=== PATIENT | male | born 1960 | race Caucasian/White ===

== ENCOUNTER 2018-12-08 21:49 | Observation (INO) | payer BC ==
[2018-12-08] MEDS ORDERED: SODIUM CHLORIDE 0.9% 1,000 ML IV STA (22:05)
[2018-12-08] MEDS ORDERED: IPRATROPIUM-ALBUTEROL 3 ML NEB INHALATION STA (22:05)
[2018-12-08] MEDS ORDERED: AZITHROMYCIN 500 MG in SODIUM CHLORIDE 0.9% 250 ML IVPB ONE (22:05)
--- NOTE | 2018-12-08 22:08 | ED ---
Chest Pain HPI - General Chief Complaint: Chest Pain Stated Complaint: chest pain Time Seen by Provider: 12/08/18 22:01 Source: patient, RN notes reviewed, old records reviewed Mode of arrival: ambulatory Limitations: no limitations - History of Present Illness Initial Comments: This is a 58-year-old male the ER for evaluation presents today for evaluation of chest pain cough congestion shortness of breath feels like he may have a fever. MD Complaint: chest pain -: hour(s) Onset: during rest Pain Location: left chest Pain Radiation: LUE Severity: mild Severity scale (1-10): 3 Quality: aching Consistency: constant Improves With: nothing Worsens With: nothing Other Symptoms: cough, fever Treatments Prior to Arrival: none - Related Data Home Medications Medication Instructions Recorded Confirmed Losartan [Cozaar] 50 mg PO DAILY 09/30/15 12/08/18 Albuterol Inhaler [Ventolin Hfa 1 - 2 puff INHALATION RT-Q6H PRN 12/08/18 12/08/18 Inhaler] Losartan [Cozaar] 25 mg PO HS 12/08/18 12/08/18 Allergies Allergy/AdvReac Type Severity Reaction Status Date / Time No Known Allergies Allergy Verified 12/08/18 22:21 Review of Systems ROS Statement: Those systems with pertinent positive or pertinent negative responses have been documented in the HPI. ROS Other: All systems not noted in ROS Statement are negative. EKG Findings - EKG Comments: EKG Findings:: EKG shows sinus rhythm rate of 91, CA 150, QRS 100, QTC 442 Past Medical History Past Medical History: Hypertension History of Any Multi-Drug Resistant Organisms: None Reported Additional Past Surgical History / Comment(s): cataract Past Psychological History: No Psychological Hx Reported Smoking Status: Current every day smoker Past Alcohol Use History: Daily Past Drug Use History: None Reported General Exam Limitations: no limitations General appearance: alert, in no apparent distress Head exam: Present: atraumatic, normocephalic, normal inspection Eye exam: Present: normal appearance, PERRL, EOMI. Absent: scleral icterus, conjunctival injection, periorbital swelling ENT exam: Present: normal exam, mucous membranes moist Neck exam: Present: normal inspection. Absent: tenderness, meningismus, lymphadenopathy Respiratory exam: Present: normal lung sounds bilaterally. Absent: respiratory distress, wheezes, rales, rhonchi, stridor Cardiovascular Exam: Present: regular rate, normal rhythm, normal heart sounds. Absent: systolic murmur, diastolic murmur, rubs, gallop, clicks GI/Abdominal exam: Present: soft, normal bowel sounds. Absent: distended, tenderness, guarding, rebound, rigid Extremities exam: Present: normal inspection, full ROM, normal capillary refill. Absent: tenderness, pedal edema, joint swelling, calf tenderness Back exam: Present: normal inspection Neurological exam: Present: alert, oriented X3, CN II-XII intact Psychiatric exam: Present: normal affect, normal mood Skin exam: Present: warm, dry, intact, normal color. Absent: rash Course Vital Signs 12/08/18 12/08/18 12/08/18 21:52 22:37 23:06 Temperature 99.9 F H Pulse Rate 90 91 81 Respiratory 20 22 Rate Blood Pressure 116/74 O2 Sat by Pulse 94 L 97 Oximetry 12/08/18 23:17 Temperature Pulse Rate 81 Respiratory Rate Blood Pressure O2 Sat by Pulse Oximetry - Reevaluation(s) Reevaluation #1: 12/08/18 23:32 Medical record reviewed Reevaluation #2: 12/08/18 23:32 Patient improved Chest Pain MDM - MDM 58 male the ER for evasive chest pain found to underlying pneumonia. Patient be admitted for pneumonia evaluation and treatment, monitoring of chest pain Critical Care Time Critical Care Time: Yes Total Critical Care Time: 31 Disposition Clinical Impression: Chest pain, Community acquired pneumonia Disposition: ADMITTED IP TO THIS [facility] Condition: Undetermined Is patient prescribed a controlled substance at d/c from ED?: No Referrals: Paulo Cao DO [Primary Care Provider] - 1-2 days
[2018-12-08 22:47] LABS: Basophils # (A) 0.1 k/uL (0-0.2); Basophils % (A) 0 %; Eosinophils # (A) 0.3 k/uL (0-0.7); Eosinophils % (A) 2 %; HCT 42.2 % (39.0-53.0); HGB 14.3 gm/dL (13.0-17.5); Lymphocytes # (A) 1.8 k/uL (1.0-4.8); Lymphocytes % (A) 11 %; MCH 36.5 pg (25.0-35.0); MCHC 33.8 g/dL (31.0-37.0); MCV 107.9 fL (80.0-100.0); Macrocytosis Moderate; Mean Platelet Volume 6.4; Monocytes # (A) 1.1 k/uL (0-1.0); Monocytes % (A) 7 %; Neutrophils # (A) 12.8 k/uL (1.3-7.7); Neutrophils % (A) 78 %; Platelet Count 258 k/uL (150-450); RBC 3.91 m/uL (4.30-5.90); RDW 12.8 % (11.5-15.5); WBC 16.5 k/uL (3.8-10.6)
--- NOTE | 2018-12-08 22:54 | XR ---
EXAM: XR Chest, 2 Views CLINICAL HISTORY: ITS.REASON XR Reason: difficulty breathing TECHNIQUE: Frontal and lateral views of the chest. COMPARISON: Chest radiograph on 08/24/2015 FINDINGS: Hardware: None. Lungs/pleura: Patchy opacity in the lingula may represent pneumonia. No pleural effusion or pneumothorax. Heart/mediastinum: Normal. No cardiomegaly. Soft tissues: Unremarkable. Bones: No acute fracture. Degenerative changes of the spine. Upper abdomen: Normal. IMPRESSION: Patchy opacity in the lingula may represent pneumonia.
[2018-12-08 22:58] LABS: ALT 16 U/L (21-72); AST 23 U/L (17-59); African American GFR (CKD) >90 (>60 ml/min/1.73 sqM); Albumin 4.2 g/dL (3.5-5.0); Alkaline Phosphatase 46 U/L (38-126); Anion Gap 15 mmol/L; Blood Urea Nitrogen 14 mg/dL (9-20); Calcium 8.8 mg/dL (8.4-10.2); Carbon Dioxide 20 mmol/L (22-30); Chloride 102 mmol/L (98-107); Creatine Kinase 85 U/L (55-170); Glucose 98 mg/dL (74-99); INR 0.9 (<1.2); Magnesium 1.9 mg/dL (1.6-2.3); Partial Thromboplastin Time 27.7 sec (22.0-30.0); Prothrombin Time 9.5 sec (9.0-12.0); Sodium 137 mmol/L (137-145); Total Bilirubin 0.7 mg/dL (0.2-1.3); Total Protein 7.4 g/dL (6.3-8.2)
[2018-12-08] MEDS ORDERED: PNEUMONIA PROTOCOL UTILIZED 1 EACH MISC PO PRN (23:29)
[2018-12-08] MEDS ORDERED: SODIUM CHLORIDE 0.9% 1,000 ML IV SCH (23:30)
[2018-12-08] MEDS ORDERED: NITROGLYCERIN SL TABS 0.4 MG TAB SUBLINGUAL PRN (23:50)
[2018-12-09 02:28] VITALS: RESP 18
[2018-12-09 04:50] LABS: Cholesterol 101 mg/dL (<200); HDL Cholesterol 50 mg/dL (40-60); LDL Cholesterol,Calculated 41 mg/dL (0-99); Triglycerides 49 mg/dL (<150)
[2018-12-09] MEDS: IPRATROPIUM-ALBUTEROL 3 ML NEB INHALATION SCH ×2 (07:12→13:32)
--- NOTE | 2018-12-09 08:57 | P.CRDCN ---
History of Present Illness Consult date: 12/09/18 History of present illness: This is a 58-year-old gentleman with history of smoking and hypertension who has been having some chest discomfort on the left side and left shoulder area. He has been having congestion and cough and some fever. The pains radiated to the middle of the chest and he was concerned that he may be having heart attack. Patient came to the emergency room. His EKG did not reveal any acute changes. Cardiac enzymes are negative. He is found to have a pneumonia and is being treated with antibiotics. The pain increases on deep breathing and coughing. No history of previous ischemic or disease, myocardial infarctions. At this point is pains appear to be typical and probably related to his pneumonia. I'll continue his current medical therapy. I'll get an echocardiogram to make sure patient doesn't have any segmental wall motion defects. His echocardiogram is normal, patient will be discharged home. Patient will follow in the office in the outpatient setting and further cardiac evaluation will be done. Patient is advised to quit smoking Review of Systems As per the chart Past Medical History Past Medical History: Hypertension Additional Past Medical History / Comment(s): smoker, ETOH 10-12 beers per day stated by patient. History of Any Multi-Drug Resistant Organisms: None Reported Additional Past Surgical History / Comment(s): cataract, hernia repair Past Anesthesia/Blood Transfusion Reactions: No Reported Reaction Past Psychological History: No Psychological Hx Reported Smoking Status: Current every day smoker Past Alcohol Use History: Daily, Heavy Past Drug Use History: None Reported - Past Family History Mother Family Medical History: Cancer Additional Family Medical History / Comment(s): mother of pneumonia Father Family Medical History: Hypertension Additional Family Medical History / Comment(s): father still living. Medications and Allergies Home Medications Medication Instructions Recorded Confirmed Type Losartan [Cozaar] 50 mg PO DAILY 09/30/15 12/08/18 History Albuterol Inhaler [Ventolin Hfa 1 - 2 puff INHALATION RT-Q6H PRN 12/08/18 0 12/08/18 History Inhaler] Losartan [Cozaar] 25 mg PO HS 12/08/18 12/08/18 History Allergies Allergy/AdvReac Type Severity Reaction Status Date / Time No Known Allergies Allergy Verified 12/08/18 22:21 Physical Exam Vitals: Vital Signs Temp Pulse Pulse Resp BP BP Pulse Ox 12/09/18 07:22 84 12/09/18 07:20 98.8 F 89 18 152/87 94 L 12/09/18 07:12 88 12/09/18 02:27 99.2 F 88 18 131/74 94 L 12/08/18 23:30 100.0 F H 92 20 118/69 96 12/08/18 23:29 22 12/08/18 23:17 81 12/08/18 23:06 81 12/08/18 22:37 91 22 97 12/08/18 21:52 99.9 F H 90 20 116/74 94 L Intake and Output 12/08/18 12/09/18 12/09/18 22:59 06:59 14:59 Intake Total 600 Balance 600 Intake: Intake, IV Titration 600 Amount Sodium Chloride 0.9% 1, 600 000 ml @ 100 mls/hr IV . Q10H [facility] Rx#:[id number] Other: Weight 72.575 kg GENERAL EXAM: Patient is alert and oriented and doesn't appear to be in any acute distress HEENT: Normocephalic. Normal reaction of pupils, equal size, normal range of extraocular motion. No erythema or exudates in the throat. NECK: No masses, no nuchal rigidity. CHEST: No chest wall deformity. LUNGS: Diminished air exchange HEART: S1 and S2 normal with no audible mumurs or gallops. Regular rhythm, femorals equal on both sides.. ABDOMEN: No hepatosplenomegaly, normal bowel sounds, no guarding or rigidity. SKIN: No rashes CENTRAL NERVOUS SYSTEM: No focal deficits. EXTREMITIES: No cyanosis, clubbing or edema. Results 12/08/18 22:25 12/08/18 22:25 Cardiac Enzymes 12/08/18 12/08/18 12/09/18 Range/Units 22:25 22:25 04:06 AST 23 (17-59) U/L Troponin I <0.012 <0.012 (0.000-0.034) ng/mL Coagulation 12/08/18 Range/Units 22:25 PT 9.5 (9.0-12.0) sec APTT 27.7 (22.0-30.0) sec Lipids 12/09/18 Range/Units 04:06 Triglycerides 49 (<150) mg/dL Cholesterol 101 (<200) mg/dL HDL Cholesterol 50 (40-60) mg/dL CBC 12/08/18 Range/Units 22:25 WBC 16.5 H (3.8-10.6) k/uL RBC 3.91 L (4.30-5.90) m/uL Hgb 14.3 (13.0-17.5) gm/dL Hct 42.2 (39.0-53.0) % Plt Count 258 (150-450) k/uL Comprehensive Metabolic Panel 12/08/18 Range/Units 22:25 Sodium 137 (137-145) mmol/L Potassium 4.0 (3.5-5.1) mmol/L Chloride 102 (98-107) mmol/L Carbon Dioxide 20 L (22-30) mmol/L BUN 14 (9-20) mg/dL Creatinine 0.61 L (0.66-1.25) mg/dL Glucose 98 (74-99) mg/dL Calcium 8.8 (8.4-10.2) mg/dL AST 23 (17-59) U/L ALT 16 L (21-72) U/L Alkaline Phosphatase 46 (38-126) U/L Total Protein 7.4 (6.3-8.2) g/dL Albumin 4.2 (3.5-5.0) g/dL Current Medications Generic Name Dose Route Start Last Admin Trade Name Freq PRN Reason Stop Dose Admin Albuterol/Ipratropium 3 ml 12/09/18 08:00 12/09/18 07:12 Duoneb 0.5 Mg-3 Mg/3 Ml Soln INHALATION 3 ml RT-QID KOLE Administration Aspirin 325 mg 12/09/18 09:00 Aspirin PO DAILY [facility] Azithromycin 500 mg 12/09/18 23:30 Zithromax PO DAILY KOLE Enoxaparin Sodium 40 mg 12/09/18 09:00 Lovenox SQ DAILY KOLE Ceftriaxone Sodium 1 gm/ 50 mls @ 100 mls/hr 12/09/18 22:00 Sodium Chloride IVPB Q24H KOLE Sodium Chloride 1,000 mls @ 100 mls/hr 12/08/18 23:30 12/09/18 01:18 Saline 0.9% IV 100 mls/hr .Q10H KOLE Administration Losartan Potassium 25 mg 12/09/18 21:00 Cozaar PO HS KOLE Losartan Potassium 50 mg 12/09/18 09:00 Cozaar PO DAILY KOLE Miscellaneous Information 1 each 12/08/18 23:29 Pneumonia Protocol Utilized PO ONCE PRN Per Protocol Nitroglycerin 0.4 mg 12/08/18 23:50 Nitrostat SUBLINGUAL Q5M PRN Chest Pain Intake and Output 12/08/18 12/09/18 12/09/18 22:59 06:59 14:59 Intake Total 600 Balance 600 Intake: Intake, IV Titration 600 Amount Sodium Chloride 0.9% 1, 600 000 ml @ 100 mls/hr IV . Q10H [facility] Rx#:[id number] Other: Weight 72.575 kg 12/08/18 22:25 12/08/18 22:25 EKG Interpretations (text) Sinus rhythm Assessment and Plan (1) Essential hypertension Current Visit: Yes Status: Acute Code(s): I10 - ESSENTIAL (PRIMARY) HYPERTENSION SNOMED Code(s): 55447565 (2) Chest pain Current Visit: Yes Status: Acute Code(s): R07.9 - CHEST PAIN, UNSPECIFIED SNOMED Code(s): 08455561 (3) Community acquired pneumonia Current Visit: Yes Status: Acute Code(s): J18.9 - PNEUMONIA, UNSPECIFIED ORGANISM SNOMED Code(s): 319652067 (4) Smoking Current Visit: Yes Status: Acute Code(s): F17.200 - NICOTINE DEPENDENCE, UNSPECIFIED, UNCOMPLICATED SNOMED Code(s): 42402026 Plan: Continue with current medical therapy with antibiotics. Echocardiogram will be done. If the echo is normal, patient could be discharged after completion of treatment for pneumonia. Follow-up as an outpatient.
[2018-12-09] MEDS ORDERED: ASPIRIN 325 MG TAB PO SCH (09:00)
[2018-12-09] MEDS ORDERED: LOSARTAN 50 MG TAB PO SCH (09:00)
[2018-12-09] MEDS ORDERED: ENOXAPARIN 40 MG/0.4 ML SYRINGE SQ SCH (09:00)
--- NOTE | 2018-12-09 10:55 | XR ---
EXAMINATION TYPE: XR chest 2V DATE OF EXAM: 12/09/2018 COMPARISON: 08/24/2015 HISTORY: Pneumonia. Follow-up exam. TECHNIQUE: Frontal and lateral views of the chest are obtained. FINDINGS: There is redemonstration of lingular pneumonia. Remainder the lungs are well aerated. Pulm onary hyperinflation represents underlying COPD. Scarring at the left costophrenic angle is seen. No sizable pleural effusion or pneumothorax. The cardiac silhouette size is within normal limits. The osseous structures are intact. IMPRESSION: Redemonstration of lingular pneumonia. Follow-up to resolution. Underlying COPD.
[2018-12-09 11:41] VITALS: BP 125/78; PULSE 79; TEMP 98.9
--- NOTE | 2018-12-09 12:12 | ECHOF ---
Referral Reason:Chest pain and cardiomyopathy MEASUREMENTS -------- HEIGHT: 180.3 cm WEIGHT: 72.6 kg BP: RVIDd: 2.5 cm (< 3.3) IVSd: 0.6 cm (0.6 - 1.1) LVIDd: 4.8 cm (3.9 - 5.3) LVPWd: 0.7 cm (0.6 - 1.1) IVSs: 1.5 cm LVIDs: 2.8 cm LVPWs: 1.5 cm Ao Diam: 3.6 cm (2.0 - 3.7) AV Cusp: 2.0 cm (1.5 - 2.6) LA Diam: 2.7 cm (2.7 - 3.8) MV EXCURSION: 14.967 mm (> 18.000) MV EF SLOPE: 68 mm/s (70 - 150) EPSS: 0.5 cm MV E Reyes: 0.73 m/s MV DecT: 156 ms MV A Reyes: 0.69 m/s MV E/A Ratio: 1.06 RAP: 5.00 mmHg RVSP: 15.03 mmHg FINDINGS -------- Resting tachycardia (HR>100bpm). This was a technically good study. The left ventricular size is normal. Left ventricular wall thickness is normal. Overall left vent ricular systolic function is normal with, an EF between 55 - 60 %. The diastolic filling pattern is normal for the age of the patient 8.39. The right ventricle is normal in size. The left atrial size is normal. The right atrial size is normal. Interatrial and interventricular septum intact. The aortic valve is trileaflet and appears structurally normal. The mitral valve is normal. There is trace mitral regurgitation. The tricuspid valve appears structurally normal. Trace tricuspid regurgitation present. Right patsy tricular systolic pressure is normal at < 35 mmHg. There is no pulmonic regurgitation present. The aortic root size is normal. Normal inferior vena cava with normal inspiratory collapse consistent with estimated right atrial pre ssure of 5 mmHg. The flow patterns, measured by Doppler, appear normal. There is no pericardial effusion. CONCLUSIONS -------- 1. Resting tachycardia (HR>100bpm). 2. This was a technically good study. 3. The left ventricular size is normal. 4. Left ventricular wall thickness is normal. 5. Overall left ventricular systolic function is normal with, an EF between 55 - 60 %. 6. The diastolic filling pattern is normal for the age of the patient 8.39 7. The right ventricle is normal in size. 8. The left atrial size is normal. 9. The right atrial size is normal. 10. Interatrial and interventricular septum intact. 11. The aortic valve is trileaflet and appears structurally normal. 12. The mitral valve is normal. 13. There is trace mitral regurgitation. 14. The tricuspid valve appears structurally normal. 15. Trace tricuspid regurgitation present. 16. Right ventricular systolic pressure is normal at < 35 mmHg. 17. There is no pulmonic regurgitation present. 18. The aortic root size is normal. 19. Normal inferior vena cava with normal inspiratory collapse consistent with estimated right atrial pressure of 5 mmHg. 20. The flow patterns, measured by Doppler, appear normal. 21. There is no pericardial effusion. [employer] DIRECTOR: Brynn Jimenez RDCS
[2018-12-09] MEDS ORDERED: methylPREDNISolone SOD SUCCI 125 MG/2 ML VIAL IV STA (13:05)
[2018-12-09] MEDS ORDERED: LOSARTAN 25 MG TAB PO SCH (21:00)
[2018-12-09] MEDS ORDERED: AZITHROMYCIN 500 MG TAB PO SCH (23:30)
--- NOTE | 2018-12-10 08:46 | P.HPIM ---
History of Present Illness H&P Date: 12/09/18 Chief Complaint: Shoulder pain, chest pain, cough HISTORY AND PHYSICAL AND DISCHARGE SUMMARY: This is a 58-year-old male patient of Dr. Cao with past medical history of COPD, hypertension, tobacco use and dependence, alcohol abuse. Patient states that he developed shoulder and chest pain as well as has a cough with phlegm production for a couple weeks. Phlegm is white in color. He complains of pain with deep breathing. He denies any radiation of pain to his jaw. He denies any numbness or tingling, no lower extremity edema. He denies any shortness of breath with ambulation. He does have some pressure sensation with palpation. He denies any recent falls. He denies O2 dependence. The patient came into [facility] emergency center for evaluation. Troponins have been negative on 3 draws. Chest x-ray shows patchy opacities in the lingula may represent pneumonia. Echocardiogram revealed EF 55-60%, trace mitral regurgitation, trace tricuspid regurgitation, no pulmonary regurgitation. Estimated right atrial pressure 5 mmHg. Temperature max 100.0. White count 16.5, MCV of 107.9, MCH 36.5. CO2 20, liver function tests normal, creatinine 0.61. Triglycerides 49, cholesterol 101, LDL 41, HDL 50. Patient has been evaluated by cardiology and cleared for discharge home. Patient can follow-up in the office for further evaluation. Patient has been started on antibiotics and will be transitioned to oral and discharged home today in stable condition. Smoking cessation has been discussed as well as alcohol cessation. Review of Systems Constitutional: Reports fatigue, Reports malaise, Denies fever Ears, nose, mouth and throat: Denies dysphagia, Denies nasal congestion, Denies nasal discharge, Denies sore throat, Denies vertigo Cardiovascular: Reports chest pain, Denies decreased exercise tolerance, Denies dyspnea on exertion, Denies edema, Denies leg edema, Denies lightheadedness, Denies orthopnea, Denies palpitations, Denies syncope Respiratory: Reports cough, Reports cough with sputum, Reports respiratory infections, Denies dyspnea, Denies excessive sputum, Denies hemoptysis, Denies home oxygen Gastrointestinal: Denies abdominal pain, Denies diarrhea, Denies nausea, Denies vomiting Genitourinary: Denies dysuria, Denies urinary frequency, Denies urinary retention Musculoskeletal: Denies gait dysfunction, Denies muscle weakness, Denies myalgias Integumentary: Denies pruritus, Denies rash, Denies wounds Neurological: Denies aphasia, Denies change in mentation, Denies change in speech Psychiatric: Denies anxiety, Denies depression Endocrine: Denies fatigue, Denies weight change Past Medical History Past Medical History: Hypertension Additional Past Medical History / Comment(s): smoker, ETOH 10-12 beers per day stated by patient. History of Any Multi-Drug Resistant Organisms: None Reported Additional Past Surgical History / Comment(s): cataract, hernia repair Past Anesthesia/Blood Transfusion Reactions: No Reported Reaction Past Psychological History: No Psychological Hx Reported Smoking Status: Current every day smoker Past Alcohol Use History: Daily, Heavy Additional Past Alcohol Use History / Comment(s): Patient is a smoker one pack per day for proximal September 40 years or more. Patient drinks beer up to 7-10 per day or more for many years. Patient lives at home with his . He does not have oxygen. He does not require cane or walker at home. Past Drug Use History: None Reported - Past Family History Mother Family Medical History: Cancer Additional Family Medical History / Comment(s): mother of pneumonia with history of breast cancer. Father Family Medical History: Hypertension Additional Family Medical History / Comment(s): father still living. Brother(s) Additional Family Medical History / Comment(s): Siblings have no major medical problems. Medications and Allergies Home Medications Medication Instructions Recorded Confirmed Type Losartan [Cozaar] 50 mg PO DAILY 09/30/15 12/08/18 History Albuterol Inhaler [Ventolin Hfa 1 - 2 puff INHALATION RT-Q6H PRN 12/08/18 12/08/18 History Inhaler] Losartan [Cozaar] 25 mg PO HS 12/08/18 12/08/18 History Levofloxacin [Levaquin] 500 mg PO DAILY #7 tab 12/09/18 Rx predniSONE 40 mg PO DAILY #14 tab 12/09/18 Rx Allergies Allergy/AdvReac Type Severity Reaction Status Date / Time No Known Allergies Allergy Verified 12/08/18 22:21 Physical Exam Vitals: Vital Signs Temp Pulse Pulse Resp BP BP Pulse Ox 12/09/18 11:40 98.9 F 79 18 125/78 95 12/09/18 07:22 84 07/11/19 07:20 98.8 F 89 18 152/87 94 L 12/09/18 07:12 88 12/09/18 02:27 99.2 F 88 18 131/74 94 L 12/08/18 23:30 100.0 F H 92 20 118/69 96 12/08/18 23:29 22 12/08/18 23:17 81 12/08/18 23:06 81 12/08/18 22:37 91 22 97 12/08/18 21:52 99.9 F H 90 20 116/74 94 L Intake and Output 12/09/18 12/09/18 12/09/18 06:59 14:59 22:59 Intake Total 600 118 Balance 600 118 Intake: Intake, IV Titration 600 Amount Sodium Chloride 0.9% 1, 600 000 ml @ 100 mls/hr IV . Q10H [facility] Rx#:[id number] Oral 118 Other: Voiding Method Toilet Gen: This is a 58-year-old male. He is resting in bed and appears to be comfortable and in no acute distress. HEENT: Head is atraumatic, normocephalic. Pupils equal, round. Sclerae is anicteric. NECK: Supple. No JVD. No lymphadenopathy. No thyromegaly. LUNGS: Diminished. No intercostal retractions. HEART: Regular rate and rhythm. No murmur. ABDOMEN: Soft. Bowel sounds are present. No masses. No tenderness. EXTREMITIES: No pedal edema. No calf tenderness. NEUROLOGICAL: Patient is awake, alert and oriented x3. Cranial nerves 2 through 12 are grossly intact. Results CBC & Chem 7: 12/08/18 22:25 12/08/18 22:25 Labs: Abnormal Lab Results - Last 24 Hours (Table) 12/08/18 12/08/18 Range/Units 22:25 22:25 WBC 16.5 H (3.8-10.6) k/uL RBC 3.91 L (4.30-5.90) m/uL MCV 107.9 H (80.0-100.0) fL MCH 36.5 H (25.0-35.0) pg Neutrophils # 12.8 H (1.3-7.7) k/uL Monocytes # 1.1 H (0-1.0) k/uL Carbon Dioxide 20 L (22-30) mmol/L Creatinine 0.61 L (0.66-1.25) mg/dL ALT 16 L (21-72) U/L Thrombosis Risk Factor Assmnt - Choose All That Apply Any of the Below Risk Factors Present?: Yes Each Factor Represents 1 point: Age 41-60 years Other Risk Factors: No Thrombosis Risk Factor Assessment Total Risk Factor Score: 1 Thrombosis Risk Factor Assessment Level: Low Risk Assessment and Plan Plan: 1. Chest pain. Acute coronary syndrome ruled out. Patient follow-up with cardiology as an outpatient. 2. Pneumonia. Patient will be discharged on Levaquin and prednisone. 3. Hypertension. 4. COPD. 5. Tobacco use and dependence. Smoking cessation. 6. Alcohol abuse. Cessation. Patient placed on the observation unit. Discharge plan: Return home Discharge Medication List Losartan [Cozaar] 50 mg PO DAILY 09/30/15 [History] Albuterol Inhaler [Ventolin Hfa Inhaler] 1 - 2 puff INHALATION RT-Q6H PRN 12/08/18 [History] Losartan [Cozaar] 25 mg PO HS 12/08/18 [History] Levofloxacin [Levaquin] 500 mg PO DAILY #7 tab 12/09/18 [Rx] predniSONE 40 mg PO DAILY #14 tab 12/09/18 [Rx] Impression and plan of care have been directed as dictated by the signing physician. Marta Way nurse practitioner acting as scribe for signing physician.
== END 2018-12-09 14:15 | disposition home or self-care (01) ==
LOC: EC 21:49 → 1SOBS 23:29
PROVIDERS: ADMIT Internal Medicine; ATTEND Internal Medicine
DX: R07.89 Other chest pain (principal); J44.0 Chronic obstructive pulmonary disease with (acute) lower respiratory infection; J18.9 Pneumonia, unspecified organism; I10 Essential (primary) hypertension; F17.210 Nicotine dependence, cigarettes, uncomplicated; F10.10 Alcohol abuse, uncomplicated; Z79.899 Other long term (current) drug therapy; Z82.49 Family history of ischemic heart disease and other diseases of the circulatory system; Z80.3 Family history of malignant neoplasm of breast; Z83.6 Family history of other diseases of the respiratory system
CPT/HCPCS: 96365; 96366; 96367; 99291; 36415; 94640 ×2; 93005; 93306; 83880; 80061; 80053; 82550; 83735; 84484 ×2; 85025; 85610; 85730; 87040; 71046 ×2; G0378 ×2; J0456; J0696

== ENCOUNTER → 2022-08-21 | Outpatient (CLI) | payer BC ==
--- NOTE | 2022-08-21 13:39 | CT ---
"INDICATION: Patient age:Male; 62 years old; Reason for study: J38.01 vocal cord paralysis; PHH. COMPARISON: None. TECHNIQUE: Standard enhanced CT of the neck and chest following intravenous administration of 100 cc of Isovue 300. Axial sections with coronal and sagittal reformats were obtained. One or more CT dose reduction strategies were utilized during this examination. Total DLP administered was 766 mGycm. FINDINGS: Head: The visualized portions of brain are unremarkable. Bilateral aphakia. Mucous retention cyst wit hin the left maxillary sinus measuring up to 1.6 cm. Mild mucosal thickening of the left posterior et hmoid sinus. The mastoid air cells are clear. Suprahyoid Neck: The oropharynx, oral cavity, parapharyngeal and retropharyngeal spaces are clear and symmetric. The nasopharynx is unremarkable. Infrahyoid Neck: The hypopharynx is clear and symmetric. Mild asymmetrical thickening of the right vo joellen cord compared to the left. Parotid Glands: Unremarkable. Submandibular Glands: Unremarkable. Lymph Nodes: Enlarged AP window lymph node measuring 1.6 cm short axis, likely metastasis. Vascular Structures: Ascending thoracic aortic aneurysm measuring up to 4.1 cm. Mild atherosclerotic calcification of the aorta and its branches. Thyroid: Unremarkable LUNGS/ PLEURA: No pleural effusion or pneumothorax. Spiculated left upper lobe superior perihilar mas s with extension into the mediastinum identified. This measures 5.0 x 3.6 x 5.4 cm in AP by TV by CC dimensions. There is less than 180 degree of involvement of the proximal left common carotid artery w ith greater than 180 degree encasement of the proximal left subclavian artery. Mild bilateral apical paraseptal emphysematous changes. No suspicious pulmonary nodules. AIRWAY: Patent and unremarkable.. HEART: Size within normal limits. No pericardial effusion. Mild coronary arterial calcifications. MEDIASTINUM: No gross evidence of adenopathy. MUSCULOSKELETAL: No acute osseous abnormalities. No aggressive osseous lesion. Mild degenerative disc disease of the cervical spine. SOFT TISSUES: Unremarkable. UPPER ABDOMEN: No significant findings. IMPRESSION: 1. Left upper lobe superior perihilar spiculated 5.4 cm mass. This is considered malignancy until pr oven otherwise. There is invasion into the mediastinum with abutment of the proximal left common edwards tid and left subclavian arteries. 2. Enlarged AP window lymph node which likely represent metastasis. 3. Mild asymmetric thickening of the right vocal cord compared to the left. Direct visualization is recommended. 4. Ascending thoracic aortic aneurysm measuring up to 4.1 cm. A Yellow level critical message alert has been initiated for Harry Garcia MD via the [employer] 36 0 | Critical Results System on 08/21/2022 1:37 PM. This message alert has been sent to Harry Garcia MD via the preferences provided by the clinician for the receipt of Radiology Critical Findings. [facility] ID [id number]."
== END | disposition home or self-care (01) ==
LOC: RADCTMAIN 12:36
PROVIDERS: ATTEND Otolaryngology
DX: I71.21 Aneurysm of the ascending aorta, without rupture (principal); J38.01 Paralysis of vocal cords and larynx, unilateral; R59.0 Localized enlarged lymph nodes; R91.8 Other nonspecific abnormal finding of lung field
CPT/HCPCS: 70491; 71260; Q9967

== ENCOUNTER → 2022-09-04 | Day surgery (SDC) | payer BC ==
[2022-09-01 13:35] VITALS: BMI 25.4
[~2022-09-04] MED LIST: LACTATED RINGERS 1,000 ML IV SCH; LIDOCAINE 2% INJ 20 MG/ML (2 ML VIAL) ONE; MIDAZOLAM 2 MG/2 ML VIAL ONE; PHENYLEPHRINE-0.9% NACL SYG 1,000 MCG/10 ML SYRINGE ONE; PROPOFOL 10 MG/ML 20 ML VIAL IV ONE; SODIUM CHLORIDE 0.9% 500 ML 500 ML IV ONE; fentaNYL (PF) 50 MCG/ML 2 ML AMP ONE
[2022-09-04 12:50] LABS: Glucose,Whole Blood 89 mg/dL (70-110)
[2022-09-04 16:24] VITALS: TEMP 97.2
--- NOTE | 2022-09-04 16:26 | P.PCN ---
Date of Procedure: 09/04/22 Preoperative Diagnosis: Left upper lobe suprahilar mass Postoperative Diagnosis: Left upper lobe suprahilar mass Procedure(s) Performed: Endobronchial ultrasound and transbronchial needle aspirate of the left upper lobe suprahilar mass Anesthesia: ROBER Surgeon: Goran Lloyd Estimated Blood Loss (ml): 0 Pathology: other Condition: stable Disposition: same day Operative Findings: After obtaining the consent the patient was taken to the OR suite , a LMA was inserted by the anesthesia team and the patient was put on MV by anesthesia. Following that the flexible bronchoscope was advanced to the LMA tube until the upper airway structures were visualized. The left vocal cord was midline and probably paralyzed. Vocal cord function and mobility could not be assessed that the patient was quite sedated. I did not suspect however that the left vocal cords was paralyzed. No lesions or nodules identified. Following that, the bronchoscope was passed to the vocal cords into the upper trachea and airway inspection was done. The trachea was seen and it was normal and then the davis appears normal then the scope advanced to the left main and ARMEN LB1-LB3 were seen and no endobronchial lesions were seen then the scope advanced to the lingula and the LB4 and LB5 were seen and no endobronchial lesions were seen the scope retracted and advanced to the left lower lobes LB6 to LB12 were seen one by one and no endobronchial lesions, then the scope was retracted back to the davis and advanced to the Right main and RUL RB1 and RB2 and RB3 were seen one by one and no endobronchial lesions were seen the scope then retracted and advanced to the BI and RML RB4 and RB5 were seen and no endobronchial lesions were seen then it was retracted and advanced to the RLL RB6 to RB12 were seen one by one and no endobronchial lesions. The flexible bronchoscope was removed. Endobronchial ultrasound was introduced through the LMA tube/mass and it was advanced into the trachea. Mediastinal lymph node evaluation was done and there was no sizable mediastinal lymph nodes identified. Following that, the endobronchial ultrasound was normal to the lateral wall of the trachea and the left upper lobe hilar mass was identified. Under direct visualization, a 22-gauge was used and multiple transbronchial needle aspirate of the mass was done. No bleeding was encountered and the patient tolerated the procedure well. Regular bronchoscope was used to do a therapeutic airway suctioning and following that the bronchoscope was removed. At the patient aroused, there LMA was removed and the patient was transferred to recovery in stable condition. We will be awaiting final pathology results. We'll continue to follow.
[2022-09-04 16:49] VITALS: RESP 16
[2022-09-04 17:22] VITALS: BP 173/94; PULSE 59
== END ==
LOC: ORWHC2ENDO 11:58
PROVIDERS: ATTEND Internal Medicine Critical Care Medicine
DX: R91.8 Other nonspecific abnormal finding of lung field (principal); I10 Essential (primary) hypertension; J44.9 Chronic obstructive pulmonary disease, unspecified; H40.9 Unspecified glaucoma; Z79.899 Other long term (current) drug therapy; Z79.51 Long term (current) use of inhaled steroids; J38.00 Paralysis of vocal cords and larynx, unspecified; I71.9 Aortic aneurysm of unspecified site, without rupture; Z87.891 Personal history of nicotine dependence
CPT/HCPCS: 88305; 88173; 31652; J2250; J3010; J2370; J2704; J2001

== ENCOUNTER → 2022-09-20 | Outpatient (CLI) | payer BC ==
--- NOTE | 2022-09-21 13:14 | PE ---
EXAMINATION TYPE: PET CT fusion skull to thigh DATE OF EXAM: 09/20/2022 CLINICAL INDICATION:Male, 62 years old with history of R91.1; TECHNIQUE: Following the intravenous administration of 13.6 mCi of F-18 FDG, whole body images are performed from the skull base to the midthigh. Images are reviewed on the computer in the coronal, a xial, and sagittal planes. Reconstructed rotating images are created on independent workstation and reviewed on the computer. A non-contrast CT is performed in conjunction with the PET scan. Glucose level 102 mg/dL COMPARISON: CT 08/21/2022, PET/CT None, FINDINGS: Mediastinal SUV mean is 1.7. Hepatic parenchyma SUV mean is 2.0. SKULL BASE AND NECK: No suspicious radiotracer activity. CHEST, MEDIASTINUM, AND HILAR REGION: Left upper lung mass which extends into the mediastinum max SUV 11.8 measuring at least 4.3 x 4.9 x 4.0 cm on PET imaging. * AP window lymph node medially in the pelvis with increased FDG activity max SUV 3.3. ABDOMEN AND PELVIS: No suspicious radiotracer activity. OSSEOUS STRUCTURES: No suspicious radiotracer activity. OTHER CT: Bilateral aphakia. Atherosclerosis at the carotid bifurcations. Atherosclerosis of the aguila rial vasculature including the coronary arteries. Bilateral mild gynecomastia changes. Scattered colo duran diverticula present. Fat-containing bilateral inguinal hernias. The prostate is enlarged measurin g up to 4.5 cm in transverse dimension. IMPRESSION: Right upper lung mass which extends into the mediastinal fat is compatible with primary malignancy. A P window lymph node likely representing local metastatic disease. No evidence for metastatic disease within the osseous structures or within the abdomen or pelvis or neck.
== END | disposition home or self-care (01) ==
LOC: RADPETMAIN 11:08
PROVIDERS: ATTEND Internal Medicine Critical Care Medicine
DX: R91.8 Other nonspecific abnormal finding of lung field (principal)
CPT/HCPCS: 78815; A9552

== ENCOUNTER → 2022-09-23 | Outpatient (CLI) | payer BC ==
[2022-09-23 09:17] LABS: Partial Thromboplastin Time 24.6 sec (22.0-30.0); Prothrombin Time 10.3 sec (9.0-12.0)
[2022-09-23 11:03] LABS: Basophils # (A) 0.07 X 10*3/uL (0.00-0.10); Basophils % (A) 0.8 %; Eosinophils # (A) 0.12 X 10*3/uL (0.04-0.35); Eosinophils % (A) 1.4 %; HCT 45.9 % (39.6-50.0); HGB 15.4 g/dL (13.0-17.0); Immature Grans, Automated 0.5 %; Lymphocytes # (A) 1.43 X 10*3/uL (0.90-5.00); Lymphocytes % (A) 16.3 %; MCH 36.4 pg (27.0-32.0); MCHC 33.6 g/dL (32.0-37.0); MCV 108.5 fL (80.0-97.0); Mean Platelet Volume 8.7 fL (9.5-12.2); Monocytes # (A) 0.96 X 10*3/uL (0.20-1.00); NRBC Per 100 WBC 0 /100 WBCS (0.0-0.0); Neutrophils # (A) 6.14 X 10*3/uL (1.80-7.70); Platelet Count 387 X 10*3/uL (140-440); RBC 4.23 X 10*6/uL (4.40-5.60); RDW 12.8 % (11.5-14.5); WBC 8.76 X 10*3/uL (4.50-10.00)
[2022-09-23 11:12] LABS: African American GFR (CKD) 123.1 (60.0-200.0); Anion Gap 8.7 mmol/L (10.00-18.00); Blood Urea Nitrogen 8.2 mg/dL (9.0-27.0); Carbon Dioxide 29.3 mmol/L (20.0-27.5); Non-African American GFR(CKD) 106.3 (60.0-200.0); Potassium 4.6 mmol/L (3.5-5.5)
[2022-09-23 15:38] LABS: Appearance,Urine Clear (Clear); Bilirubin,Urine Negative (Negative); Blood,Urine Negative (Negative); Color,Urine Yellow (Yellow); Ketones,Urine Negative (Negative); Nitrite,Urine Negative (Negative); PH, Urine 5.5 (5.0-8.0); Urobilinogen,Urine 0.2 (0.2,1.0)
== END | disposition home or self-care (01) ==
LOC: LABPAT 07:48
PROVIDERS: ATTEND Thoracic Surgery (Cardiothoracic Vascular Surgery)
DX: Z01.812 Encounter for preprocedural laboratory examination (principal); R59.0 Localized enlarged lymph nodes; E86.0 Dehydration; I51.0 Cardiac septal defect, acquired; E87.8 Other disorders of electrolyte and fluid balance, not elsewhere classified; R58 Hemorrhage, not elsewhere classified; R53.83 Other fatigue; R94.31 Abnormal electrocardiogram [ECG] [EKG]
CPT/HCPCS: 36415; 80051; 81003; 82565; 82947; 84520; 85025; 85610; 85730; 87086; 93005

== ENCOUNTER 2022-09-25 05:46 | Day surgery (SDC) | payer BC ==
[2022-09-22 12:27] VITALS: BMI 25.0
[~2022-09-25 05:46] MED LIST changes: -LIDOCAINE 2% INJ 20 MG/ML (2 ML VIAL) ONE; -MIDAZOLAM 2 MG/2 ML VIAL ONE; +ONDANSETRON 4 MG/2 ML VIAL IVP ONE; -PHENYLEPHRINE-0.9% NACL SYG 1,000 MCG/10 ML SYRINGE ONE; -PROPOFOL 10 MG/ML 20 ML VIAL IV ONE; -SODIUM CHLORIDE 0.9% 500 ML 500 ML IV ONE; -fentaNYL (PF) 50 MCG/ML 2 ML AMP ONE
[2022-09-25] MEDS ORDERED: fentaNYL (PF) 50 MCG/ML 2 ML AMP IV PRN (07:00)
[2022-09-25] MEDS ORDERED: HYDROmorphone 0.5 MG/0.5 ML SYRINGE IVP PRN (07:00)
[2022-09-25] MEDS ORDERED: GLYCOPYRROLATE 0.2 MG/ML 2 ML VIAL ONE (07:25)
[2022-09-25] MEDS ORDERED: SUCCINYLCHOLINE CHLORIDE 200 MG/10 ML VIAL IV ONE (07:25)
[2022-09-25] MEDS ORDERED: LIDOCAINE 2% INJ 20 MG/ML (2 ML VIAL) ONE (07:25)
[2022-09-25] MEDS ORDERED: PROPOFOL 10 MG/ML 20 ML VIAL IV ONE (07:25)
[2022-09-25] MEDS ORDERED: fentaNYL (PF) 50 MCG/ML 2 ML AMP ONE (07:25)
[2022-09-25] MEDS ORDERED: MIDAZOLAM 2 MG/2 ML VIAL ONE (07:25)
[2022-09-25] MEDS ORDERED: NEOSTIGMINE 1 MG/ML 10 ML VIAL ONE (07:25)
[2022-09-25] MEDS ORDERED: ROCURONIUM 10 MG/ML (5 ML VIAL) IV ONE (07:25)
[2022-09-25] MEDS ORDERED: LACTATED RINGERS 1,000 ML IV ONE (07:56)
[2022-09-25] MEDS ORDERED: BUPIVACAINE (PF) 0.25% 30 ML VIAL SQ ONE (08:36)
[2022-09-25 08:50] VITALS: TEMP 97
--- NOTE | 2022-09-25 09:10 | P.OP ---
Date of Procedure: 09/25/22 Preoperative Diagnosis: Stage III lung cancer Postoperative Diagnosis: Same Procedure(s) Performed: Left anterior mediastinotomy with mediastinal lymph node biopsy (Dafter procedure) Implants: None Anesthesia: GETA Surgeon: Chaim Robertson Estimated Blood Loss (ml): 25 IV fluids (ml): 1,400 Urine output (ml): 0 Pathology: other (Mediastinal mass for frozen section and permanent section.) Condition: stable Disposition: PACU Indications for Procedure: 62-year-old male presents with hoarseness and paralyzed left vocal cord. He was found to have a left suprahilar lung mass with mediastinal extension or contiguous mediastinal adenopathy by CT and PET. He also has AP window lymph nodes. Bronchoscopy and nevus was performed and malignant cells were obtained but they were unable to establish a definitive diagnosis. Surgical biopsy was requested. Operative Findings: Lung mass was separable from the mediastinum. Biopsies of the mediastinal mass were obtained. Frozen section revealed poorly differentiated non-small cell carcinoma. Description of Procedure: Patient was placed supine on the operating room table. Gen. anesthesia was remy kenny. Anterior chest and left lateral chest was sterilely prepped and draped. Incision was made over the fourth costal cartilage and carried down skin and subcutaneous tissue. The pectoralis muscle fibers were split and the fourth costal cartilage was identified. We incised the perichondrium and resected the cartilage. We then incised the posterior perichondrium and exposed the pleura. Internal mammary artery was ligated proximally and distally with 3-0 silk. Blunt dissection was carried into the mediastinum. The tumor could be palpated. We were able to fracture between the tumor and the mediastinal component of the mass suggesting that the mediastinal component of the mass was contiguous lymph nodes. Multiple biopsies were obtained using both direct vision and mediastinoscope. Frozen section of a portion demonstrated viable tissue. Bleeding was controlled with packing. The packing was removed and good hemostasis was noted. Perichondrium was tacked closed with 2-0 Vicryl f [id number] sutures. The muscle was closed with 2-0 Vicryl. Subcutaneous subcuticular layers were closed with 3-0 Vicryl. Skin glue and a dry sterile dressing were applied. Patient was extubated and transferred to recovery in stable condition.
[2022-09-25 09:19] VITALS: RESP 16
--- NOTE | 2022-09-25 09:20 | XR ---
EXAMINATION TYPE: XR chest 1V portable DATE OF EXAM: 09/25/2022 HISTORY: Shortness of breath. COMPARISON: 12/09/2018 TECHNIQUE: Single view of the chest is submitted. FINDINGS: Demonstrated are scattered senescent parenchymal change. There is no evidence for focal infiltrate. The heart is stable. Hilar and mediastinal structures are within normal limits. Degenerative changes are seen of the dorsal spine. IMPRESSION: 1. Chronic changes without evidence for acute pulmonary disease.
[2022-09-25 09:56] VITALS: PULSE 63
[2022-09-25] MEDS ORDERED: IBUPROFEN 600 MG TAB PO ONE (09:56)
[2022-09-25 10:18] VITALS: BP 155/89
--- NOTE | 2022-09-26 11:00 | P.ANPRN ---
Procedure Note - Anesthesia - Invasive Line Right Arterial Line Time Out Performed: Yes Date of Procedure: 09/25/22 Time of Procedure: 06:51 Location of Patient: PreOp Preparation: Sterile Prep Arterial Line Location: Radial Ultrasound Used: No Purpose - Visualization and Identification of Vasculature: No Image Stored and Saved: No Narrative: Central line placement per sterile protocol utilized.
== END 2022-09-25 10:33 | disposition home or self-care (01) ==
LOC: UNDOADMIN 05:46 → U 05:46 → 2ORMAIN 05:46 → EDSTATUS 07:30 → UNDODISIN 10:33 → U 10:33
PROVIDERS: ATTEND Thoracic Surgery (Cardiothoracic Vascular Surgery)
DX: C38.3 Malignant neoplasm of mediastinum, part unspecified (principal); J38.00 Paralysis of vocal cords and larynx, unspecified; Z79.51 Long term (current) use of inhaled steroids; Z87.891 Personal history of nicotine dependence
CPT/HCPCS: 86900; 86901; 88305; 86850; 88342; 88331; 88341; 71045; 39010; J2250; J0330; J2710; J0690; J2405; J3010; J2704; J2001

== ENCOUNTER → 2022-10-02 | Outpatient (CLI) | payer BC ==
--- NOTE | 2022-10-02 15:12 | XR ---
EXAMINATION TYPE: XR chest 2V DATE OF EXAM: 10/02/2022 COMPARISON: Chest x-ray September 25, 2022 and old studies. HISTORY: Shortness of breath, rule out pleural effusion. TECHNIQUE: Frontal and lateral views of the chest are obtained. FINDINGS: There is new small left pleural effusion. There is background mild chronic emphysematous c hange with left suprahilar mass or neoplasm adjacent to aortic knob redemonstrated. Right lung is cl ear. The cardiac silhouette size is stable and within normal limits. The osseous structures are int act. IMPRESSION: As above.
== END | disposition home or self-care (01) ==
LOC: RADXRMAIN 14:42
PROVIDERS: ATTEND Thoracic Surgery (Cardiothoracic Vascular Surgery)
DX: R06.02 Shortness of breath (principal)
CPT/HCPCS: 71046

== ENCOUNTER → 2023-01-07 | Outpatient (CLI) | payer BC ==
--- NOTE | 2023-01-07 07:47 | MR ---
EXAMINATION TYPE: MR brain wo/w con DATE OF EXAM: 01/07/2023 COMPARISON: 10/03/2022 HISTORY: Blurred vision, Lung ca CONTRAST: Performed utilizing 7 mL intravenous Gadavist gadolinium contrast. TECHNIQUE: Multiplanar, multiecho imaging on a 3.0 Roberta magnet is performed through the brain. Stud y is performed within 24 hours of arrival to the hospital. The craniovertebral junction is normal. The pituitary is normal. Diffusion-weighted imaging is performed. No abnormal hyperintensity is present to suggest an acute i ntracranial infarct or acute ischemic change. There are couple of small subcortical white matter changes including left frontal lobe measuring 0.4 cm left coats radiata measuring 0.3 cm, anterior left parietal lobe measuring 0.4 cm. These are nons pecific but could be related to microvascular ischemic change. No abnormal enhancement in these locat ions or elsewhere within the brain examination. Findings are nonspecific but could be related to micr ovascular ischemic change. Differential diagnosis could include migraine headaches vasculitis or Lyme disease sclerosis. Ventricles and sulci are appropriate for the patient age. IMPRESSIONS: 1. Few punctate hyperintensities on inversion recovery are nonspecific but likely related to microvas cular ischemic change. These are not out of proportion to the patient's age and appears stable from c omparison. 2. No suspicious changes to suggest metastatic disease.
== END | disposition home or self-care (01) ==
LOC: RADMRIMAIN 06:21
PROVIDERS: ATTEND Internal Medicine
DX: C34.12 Malignant neoplasm of upper lobe, left bronchus or lung (principal)
CPT/HCPCS: 70553; A9585

== ENCOUNTER → 2023-03-12 | Outpatient (CLI) | payer BC ==
[2023-03-12 15:38] LABS: African American GFR (CKD) >90 (>60 ml/min/1.73 sqM); Blood Urea Nitrogen 10 mg/dL (9-20); Non-African American GFR(CKD) >90 (>60 ml/min/1.73 sqM)
--- NOTE | 2023-03-13 09:04 | CT ---
EXAMINATION TYPE: CT chest abdomen w con CT DLP: 1133 mGycm, Automated exposure control for dose reduction was used. DATE OF EXAM: 03/12/2023 4:20 PM COMPARISON: 12/19/2022 CLINICAL INDICATION:Male, 62 years old with history of C34.12 MALIGNANT NEOPLASM OF UPPER LOBE, LEFT BRON; PHH, Lung cancer, malignant neoplasm Technique: Multiple axial images of the chest, abdomen were obtained. Two-dimensional coronal and sag ittal reconstructions were obtained. Contrast used:100 cc mL of Isovue 300 with IV Contrast, Oral contrast used: with Oral Contrast Findings: CHEST: LUNGS/ PLEURA: Masslike consolidation in the left upper lung appears slightly decreased in size measu ring 1.8 x 1.7 m, previously 2.4 x 2.1 cm. Ill-defined soft tissue extending into the mediastinum ser ies 3 image 24 is not significantly changed. AIRWAY: Patent and unremarkable. HEART: Heart is mildly enlarged for size with coronary artery calcifications. MEDIASTINUM: No gross evidence of adenopathy. Soft tissue consolidation extending from the mass in th e left upper lung into the mediastinum appears grossly similar to prior. No new or enlarging lymph no usrya within the mediastinum. VASCULATURE: Ascending thoracic aorta ectasia up to 4.1 cm. The origins of the aorta are patent. MUSCULOSKELETAL: No acute osseous abnormalities. SOFT TISSUES/LYMPH NODES: Unremarkable. LOWER NECK: No significant findings. ABDOMEN: ABDOMEN LIVER: Unremarkable GALLBLADDER AND BILE DUCTS: Unremarkable. PANCREAS: Unremarkable. SPLEEN: Unremarkable. ADRENAL GLANDS: Unremarkable. KIDNEYS AND URETERS: No evidence of hydronephrosis or renal calculus. The ureters are unremarkable. PELVIS BLADDER: Unremarkable REPRODUCTIVE: Unremarkable. ABDOMEN & PELVIS STOMACH AND BOWEL: No evidence of bowel obstruction. PERITONEUM: No evidence of pneumoperitoneum or free fluid. VASCULATURE: Mild atherosclerotic calcifications are present throughout the abdominal aorta and its b ranches. MUSCULOSKELETAL: No acute osseous abnormalities LYMPH NODES: No gross evidence for lymphadenopathy. SOFT TISSUE/ABDOMINAL WALL: Unremarkable IMPRESSION: Interval decrease in size in left upper lung consolidation. There is ill-defined soft tissue extendin g into the mediastinum which is not significantly changed. No evidence for new lymphadenopathy, new p ulmonary nodule or mass or evidence for metastatic disease to the abdomen.
== END | disposition home or self-care (01) ==
LOC: RADCTMAIN 14:51
PROVIDERS: ATTEND Internal Medicine
DX: C34.12 Malignant neoplasm of upper lobe, left bronchus or lung (principal); R91.8 Other nonspecific abnormal finding of lung field
CPT/HCPCS: 82565; 84520; 71260; 74160; 36415; Q9967

== ENCOUNTER → 2023-08-14 | Outpatient (CLI) | payer BC ==
[2023-08-14 10:27] LABS: African American GFR (CKD) >90 (>60 ml/min/1.73 sqM); Blood Urea Nitrogen 10 mg/dL (9-20); Non-African American GFR(CKD) >90 (>60 ml/min/1.73 sqM)
--- NOTE | 2023-08-14 11:01 | CT ---
EXAMINATION: CT chest and abdomen AT WITH IV CONTRAST DATE OF EXAMINATION: 08/14/2023. COMPARISON: 03/12/2023. INDICATION: Lung cancer. PROCEDURE: Axial CT of the chest and abdomen was performed following the intravenous administration of 100 ml Isovue 370. Coronal and sagittal reformats were performed. CT dose lowering techniques wer e used, to include: automated exposure control, adjustment for patient size, and/or use of iterative reconstruction. FINDINGS: CHEST: Mediastinum and Sandra: Band of airspace opacity within the left upper lobe and left perihilar region i s thought to represent treatment change. Underlying disease is difficult to exclude. A previously not ed nodular mass was seen in this location. Pleural and Pericardial spaces: There are no pleural or pericardial effusions. Cardiovascular: Dilation of the ascending thoracic aorta to 4.4 cm is unchanged. No dissection. Moder ate patchy coronary calcifications. Pulmonary Artery: There are no central pulmonary arterial filling defects. Lung Parenchyma and Airways: Changes within the left upper lobe and perihilar region described above are felt to represent treatment changes with underlying disease difficult to exclude. ABDOMEN: Liver and Biliary system: Normal. Adrenal glands: Normal. Kidneys and ureters: Normal. Spleen: Normal. Pancreas: Normal. Gallbladder: Normal. Lymph nodes, Peritoneum and mesentery: There is no mesenteric or retroperitoneal lymphadenopathy. Gastrointestinal tract: There are no dilated loops of bowel or free intraperitoneal air. Aorta/IVC: There is moderate vascular calcification within the abdominal aorta without evidence of aneurysmal dilation or dissection.. IVC normal. Abdominal wall: Normal. BONES: There are no osseous destructive lesions.. ADDITIONAL SIGNIFICANT FINDINGS: None. IMPRESSION: 1. Area of consolidative opacity within the left perihilar region and in the region of the previously noted small mass is favored to represent treatment changes with residual disease difficult to exclud e. 2. Unchanged dilation of ascending thoracic aorta. 3. Moderate coronary artery calcifications. 4. No evidence of metastatic disease otherwise seen.
== END | disposition home or self-care (01) ==
LOC: RADCTMAIN 09:50
PROVIDERS: ATTEND Internal Medicine
DX: C34.12 Malignant neoplasm of upper lobe, left bronchus or lung (principal); I25.10 Atherosclerotic heart disease of native coronary artery without angina pectoris
CPT/HCPCS: 82565; 84520; 71260; 74160; 36415; Q9967

== ENCOUNTER 2023-08-26 15:36 | Inpatient (IN) | payer BC, MEDICARE ==
--- NOTE | 2023-08-26 15:54 | ED ---
SOB HPI - General Source: patient, RN notes reviewed Mode of arrival: ambulatory Limitations: no limitations <Elvira Vences - Last Filed: 08/26/23 15:53> <Priti Rao - Last Filed: 08/27/23 00:11> - General Stated Complaint: SOB Time Seen by Provider: 08/26/23 15:53 - History of Present Illness Initial Comments: Quick note: Patient is a 63-year-old male presenting to the ER with chief complaint shortness of breath. He states he has been having increasing shortness of breath of the past couple of weeks. He is currently undergoing c hemo and followed by Also follow-up. He does report he had a fever of 101 recently. Reports couple days of chest pain as well. (Elvira Vences) 63-year-old male presents to the emergency department for evaluation of shortness of breath. This has been going on for 2 weeks. He states that it is worse when he exerts himself. Patient states that he has lung cancer and f danielitolows with Dr. Barreto. He states that he was scheduled for his immunotherapy today and went into 3 days. He was found to have a fever of 101 degrees. He was sent to the emergency department following this. Patient also notes that there is a sore in his mouth that has been there for around 2 weeks as well. (Priti Rao) - Related Data Home Medications Medication Instructions Recorded Confirmed Losartan [Cozaar] 50 mg PO DAILY 09/30/15 08/26/23 Albuterol Inhaler [Ventolin Hfa 2 puff INHALATION RT-Q6H PRN 12/08/18 08/26/23 Inhaler] Loratadine [Claritin] 10 mg PO DAILY 09/01/22 08/26/23 Bimatoprost [Lumigan 0.01% Ophth 1 drop BOTH EYES HS 08/26/23 08/26/23 Soln] Excedrin Pm 1 tab PO HS 08/26/23 08/26/23 Simethicone [Gas-X] 125 mg PO HS 08/26/23 08/26/23 predniSONE 5 mg PO DAILY 08/26/23 08/26/23 Allergies Allergy/AdvReac Type Severity Reaction Status Date / Time No Known Allergies Allergy Verified 08/26/23 19:22 Review of Systems ROS Other: All systems not noted in ROS Statement are negative. <Elvira Vences - Last Filed: 08/26/23 15:53> ROS Other: All systems not noted in ROS Statement are negative. <Priti Rao - Last Filed: 08/27/23 00:11> ROS Statement: Those systems with pertinent positive or pertinent negative responses have been documented in the HPI. Past Medical History Past Medical History: Eye Disorder, Hypertension Additional Past Medical History / Comment(s): GLAUCOMA, MASS FOUND IN LT UPPER LOBE, PARALYZED VOCAL CORD History of Any Multi-Drug Resistant Organisms: None Reported Past Surgical History: Hernia Repair Additional Past Surgical History / Comment(s): BILAT CATARACTS REMOVED WITH LENS IMPLANTS, hernia repair Past Anesthesia/Blood Transfusion Reactions: No Reported Reaction Past Psychological History: No Psychological Hx Reported Smoking Status: Former smoker Past Alcohol Use History: Daily, Heavy Additional Past Alcohol Use History / Comment(s): QIT SMOKING 2020, Patient drinks beer up to 7-10 per day or more for many years. Patient lives at home with his . He does not have oxygen. He does not require cane or walker at home. Past Drug Use History: None Reported - Past Family History Mother Family Medical History: Cancer Additional Family Medical History / Comment(s): mother of pneumonia with history of breast cancer. Father Family Medical History: Hypertension Additional Family Medical History / Comment(s): father still living. Brother(s) Additional Family Medical History / Comment(s): Siblings have no major medical problems. <Elvira Vences - Last Filed: 08/26/23 15:53> General Exam <Elvira Vences - Last Filed: 08/26/23 15:53> Limitations: no limitations General appearance: alert, in no apparent distress Head exam: Present: atraumatic, normocephalic, normal inspection Eye exam: Present: normal appearance, PERRL, EOMI. Absent: scleral icterus, conjunctival injection, periorbital swelling ENT exam: Present: normal exam, mucous membranes moist Neck exam: Present: normal inspection. Absent: tenderness, meningismus, lymphadenopathy Respiratory exam: Present: normal lung sounds bilaterally, wheezes. Absent: respiratory distress, rales, rhonchi, stridor Cardiovascular Exam: Present: normal rhythm, tachycardia, normal heart sounds. Absent: systolic murmur, diastolic murmur, rubs, gallop, clicks GI/Abdominal exam: Present: soft. Absent: distended, tenderness, guarding, rebound, rigid Extremities exam: Present: normal inspection, full ROM, normal capillary refill. Absent: tenderness, pedal edema, joint swelling, calf tenderness Neurological exam: Present: alert, oriented X3 Psychiatric exam: Present: normal affect, normal mood Skin exam: Present: warm, dry, intact, normal color. Absent: rash <Priti Rao - Last Filed: 08/27/23 00:11> - General Exam Comments Initial Comments: Visual Physical Exam Vital signs reviewed General: Well-appearing, nontoxic, no acute distress. Horse voice Head: Normocephalic, atraumatic Eyes: PERRLA, EOMI ENT: Airway patent Chest: Nonlabored breathing Skin: No visual rash, normal skin tone Neuro: Alert and oriented 3 Musculoskeletal: No gross abnormalities (Elvira Vences) Course Vital Signs 08/26/23 08/26/23 08/26/23 15:54 17:09 17:11 Temperature 101.0 F H Pulse Rate 119 H 123 H Respiratory 20 20 Rate Blood Pressure 170/99 O2 Sat by Pulse 97 Oximetry 08/26/23 08/26/23 08/26/23 18:56 21:30 23:34 Temperature 97.4 F L 99.2 F Pulse Rate 104 H 103 H 93 Respiratory 18 18 16 Rate Blood Pressure 157/96 154/100 155/91 O2 Sat by Pulse 95 97 94 L Oximetry Medical Decision Making <Elvira Vences - Last Filed: 08/26/23 15:53> - Lab Data Result diagrams: 08/26/23 17:04 08/26/23 17:45 <Priti Rao - Last Filed: 08/27/23 00:11> - Medical Decision Making I performed the quick note portion of this chart. Electronically signed by Elvira Vences PA-C (Elvira Vences) Was pt. sent in by a medical professional or institution (CLAUDIA Daugherty, LICENSED OCCUPATIONAL THERAPY ASSISTANT, urgent care, hospital, or [facility]...) When possible be specific @ -No Did you speak to anyone other than the patient for history (EMS, parent, family, police, friend...)? What history was obtained from this source @ -No Did you review nursing and triage notes (agree or disagree)? Why? @ -I reviewed and agree with nursing and triage notes Were old charts reviewed (outside hosp., previous admission, EMS record, old EKG, old radiological studies, urgent care reports/EKG's, [facility] records)? Report findings @ -No old charts were reviewed Differential Diagnosis (chest pain, altered mental status, abdominal pain women, abdominal pain men, vaginal bleeding, weakness, fever, dyspnea, syncope, headache, dizziness, GI bleed, back pain, seizure, CVA, palpatations, mental hea lth, musculoskeletal)? @ -Differential Dyspnea: Coronary syndrome, arrhythmia, tamponade, asthma, COPD, pulmonary embolism, pneumonia, pneumothorax, pulmonary effusion, anaphylaxis, diabetic ketoacidosis, flailed chest, pulmonary contusion, diaphragmatic rupture, anemia, neuromuscular, this is not meant to be an all-inclusive list. EKG interpreted by me (3pts min.). @ -EKG at 1632 shows sinus tachycardia rate 111, MT 154, QRS 96, QTQTc [id number] X-rays interpreted by me (1pt min.). @ -None done CT interpreted by me (1pt min.). @ -None done U/S interpreted by me (1pt. min.). @ -None done What testing was considered but not performed or refused? (CT, X-rays, U/S, labs)? Why? @ -None What meds were considered but not given or refused? Why? @ -None Did you discuss the management of the patient with other professionals (professionals i.e. , PA, LICENSED OCCUPATIONAL THERAPY ASSISTANT, lab, RT, psych nurse, social group worker, compressor operator portable, teacher, marine safety officer, ed case manager)? Give summary @ -Management discussed with Dr. Camejo, recommend ID consultation, is accepting of admission Was smoking cessation discussed for >3mins.? @ -No Was critical care preformed (if so, how long)? @ -No Were there social determinants of health that impacted care today? How? (Homelessness, low income, unemployed, alcoholism, drug addiction, transportation, low edu. Level, literacy, decrease access to med. care, residential, rehab)? @ -No Was there de-escalation of care discussed even if they declined (Discuss DNR or withdrawal of care, Hospice)? DNR status @ -No What co-morbidities impacted this encounter? (DM, HTN, Smoking, COPD, CAD, C ancer, CVA, ARF, Chemo, Hep., AIDS, mental health diagnosis, sleep apnea, morbid obesity)? @ -None Was patient admitted / discharged? Hospital course, mention meds given and route, prescriptions, significant lab abnormalities, going to OR and other pertinent info. @ -Admitted. Patient presented to the emergency department for evaluation of fever, shortness of breath. Patient found to be febrile and tachycardic in the ED initially. Patient has mild leukocytosis at 11.8 CMP essentially unrema rkable, lactic acid 1.7, negative troponin, COVID, influenza, RSV negative. Chest x-ray obtained which shows COPD changes, left lung increased reticulation with consolidation changes in the left upper lung. This consolidation identified as source of infection, patient started on Rocephin and azithromycin. Blood cultures prior to antibiotics were obtained. Patient also given 2 L bolus and 130 cc per hour. Patient had elevated D-dimer at 1.33. Following this he underwent CT scan for PE shows no evidence of any pulmonary embolism show there is slight interval worsening of the airspace opacities in the left upper lobe which could be due to posttreatment changes/pneumonitis, infection or active malignant involvement. Patient will be admitted for pneumonia meeting sepsis criteria. Case was discussed with Dr. Camejo, recommended infectious disease consultation. Patient is understanding and agreeable with this plan. Patient stable at time of admission. Undiagnosed new problem with uncertain prognosis? @ -No Drug Therapy requiring intensive monitoring for toxicity (Heparin, Nitro, I nsulin, Cardizem)? @ -No Were any procedures done? @ -No Diagnosis/symptom? @ -Pneumonia, sepsis Acute, or Chronic, or Acute on Chronic? @ -Acute Uncomplicated (without systemic symptoms) or Complicated (systemic symptoms)? @ -Complicated Side effects of treatment? @ -No Exacerbation, Progression, or Severe Exacerbation? @ -No Poses a threat to life or bodily function? How? (Chest pain, [place], [place], pneumonia, PE, COPD, DKA, ARF, appy, cholecystitis, CVA, Diverticulitis, Homicidal, Suicidal, threat to staff... and all critical care pts) @ -No (Priti Rao) - Lab Data Lab Results 08/26/23 08/26/23 08/26/23 Range/Units 17:04 17:04 17:04 WBC 11.8 H (3.8-10.6) k/uL RBC 4.71 (4.30-5.90) m/uL Hgb 16.9 (13.0-17.5) gm/dL Hct 52.4 (39.0-53.0) % MCV 111.3 H (80.0-100.0) fL MCH 36.0 H (25.0-35.0) pg MCHC 32.3 (31.0-37.0) g/dL RDW 11.4 L (11.5-15.5) % Plt Count 677 H (150-450) k/uL MPV 7.1 Neutrophils % 86 % Lymphocytes % 6 % Monocytes % 6 % Eosinophils % 1 % Basophils % 0 % Neutrophils # 10.2 H (1.3-7.7) k/uL Lymphocytes # 0.7 L (1.0-4.8) k/uL Monocytes # 0.7 (0-1.0) k/uL Eosinophils # 0.1 (0-0.7) k/uL Basophils # 0.1 (0-0.2) k/uL Manual Slide Review Performed Macrocytosis Marked A Sodium (137-145) mmol/L Potassium (3.5-5.1) mmol/L Chloride (98-107) mmol/L Carbon Dioxide (22-30) mmol/L Anion Gap mmol/L BUN (9-20) mg/dL Creatinine (0.66-1.25) mg/dL Est GFR (CKD-EPI)AfAm (>60 ml/min/1.73 sqM) Est GFR (CKD-EPI)NonAf (>60 ml/min/1.73 sqM) Glucose (74-99) mg/dL Plasma Lactic Acid Riley 1.7 (0.7-2.0) mmol/L Calcium (8.4-10.2) mg/dL Magnesium (1.6-2.3) mg/dL Total Bilirubin (0.2-1.3) mg/dL AST (17-59) U/L ALT (4-49) U/L Alkaline Phosphatase (38-126) U/L Troponin I (0.000-0.034) ng/mL Total Protein (6.3-8.2) g/dL Albumin (3.5-5.0) g/dL Influenza Type A (PCR) Not Detected (Not Detectd) Influenza Type B (PCR) Not Detected (Not Detectd) RSV (PCR) Not Detected (Not Detectd) SARS-CoV-2 (PCR) Not Detected (Not Detectd) 08/26/23 08/26/23 Range/Units 17:45 17:45 WBC (3.8-10.6) k/uL RBC (4.30-5.90) m/uL Hgb (13.0-17.5) gm/dL Hct (39.0-53.0) % MCV (80.0-100.0) fL MCH (25.0-35.0) pg MCHC (31.0-37.0) g/dL RDW (11.5-15.5) % Plt Count (150-450) k/uL MPV Neutrophils % % Lymphocytes % % Monocytes % % Eosinophils % % Basophils % % Neutrophils # (1.3-7.7) k/uL Lymphocytes # (1.0-4.8) k/uL Monocytes # (0-1.0) k/uL Eosinophils # (0-0.7) k/uL Basophils # (0-0.2) k/uL Manual Slide Review Macrocytosis Sodium 134 L (137-145) mmol/L Potassium 4.9 (3.5-5.1) mmol/L Chloride 100 (98-107) mmol/L Carbon Dioxide 23 (22-30) mmol/L Anion Gap 11 mmol/L BUN 10 (9-20) mg/dL Creatinine 0.45 L (0.66-1.25) mg/dL Est GFR (CKD-EPI)AfAm >90 (>60 ml/min/1.73 sqM) Est GFR (CKD-EPI)NonAf >90 (>60 ml/min/1.73 sqM) Glucose 94 (74-99) mg/dL Plasma Lactic Acid Riley (0.7-2.0) mmol/L Calcium 9.0 (8.4-10.2) mg/dL Magnesium 1.6 (1.6-2.3) mg/dL Total Bilirubin 0.6 (0.2-1.3) mg/dL AST 53 (17-59) U/L ALT 44 (4-49) U/L Alkaline Phosphatase 81 (38-126) U/L Troponin I <0.012 (0.000-0.034) ng/mL Total Protein 7.3 (6.3-8.2) g/dL Albumin 3.7 (3.5-5.0) g/dL Influenza Type A (PCR) (Not Detectd) Influenza Type B (PCR) (Not Detectd) RSV (PCR) (Not Detectd) SARS-CoV-2 (PCR) (Not Detectd) Disposition <Elvira Vences - Last Filed: 08/26/23 15:53> Is patient prescribed a controlled substance at d/c from ED?: No <Priti Rao - Last Filed: 08/27/23 00:11> Clinical Impression: Sepsis, Pneumonia Disposition: ADMITTED IP TO THIS HOSP Condition: Stable
[2023-08-26] MEDS: ACETAMINOPHEN TAB 325 MG TAB PO STA (17:10)
[2023-08-26 17:14] LABS: Basophils # (A) 0.1 k/uL (0-0.2); Basophils % (A) 0 %; Eosinophils # (A) 0.1 k/uL (0-0.7); Eosinophils % (A) 1 %; HCT 52.4 % (39.0-53.0); HGB 16.9 gm/dL (13.0-17.5); Lymphocytes # (A) 0.7 k/uL (1.0-4.8); Lymphocytes % (A) 6 %; MCHC 32.3 g/dL (31.0-37.0); MCV 111.3 fL (80.0-100.0); Macrocytosis Marked; Mean Platelet Volume 7.1; Monocytes # (A) 0.7 k/uL (0-1.0); Monocytes % (A) 6 %; Neutrophils # (A) 10.2 k/uL (1.3-7.7); Neutrophils % (A) 86 %; Platelet Count 677 k/uL (150-450); RBC 4.71 m/uL (4.30-5.90); RDW 11.4 % (11.5-15.5); WBC 11.8 k/uL (3.8-10.6)
--- NOTE | 2023-08-26 17:23 | XR ---
EXAMINATION TYPE: XR chest 2V DATE OF EXAM: 08/26/2023 5:12 PM CLINICAL INDICATION:Male, 63 years old with history of difficulty breathing; COMPARISON: CT 08/14/2023. TECHNIQUE: XR chest 2V Frontal and lateral views of the chest. FINDINGS: Lungs/Pleura: There is increased interstitial opacities throughout the left lung compared to the righ t. There is increased lucency in the right lung apex. Consolidation changes seen on prior CT is less well appreciated on radiography. No evidence for pneumothorax. Pulmonary vascularity: Unremarkable. Heart/mediastinum: Cardiomediastinal silhouette is unremarkable. Musculoskeletal: No acute osseous pathology. IMPRESSION: No definitive acute process COPD changes worse on the right with expanded inspiration on the right. L eft lung demonstrates increased reticulation with consolidation changes in the left upper lung which appear to remain present. Findings similar to 08/14/2023 CT given differences in technique..
[2023-08-26] MEDS ORDERED: PNEUMONIA PROTOCOL UTILIZED 1 EACH MISC PO PRN (18:15)
[2023-08-26 18:21] LABS: ALT 44 U/L (4-49); AST 53 U/L (17-59); African American GFR (CKD) >90 (>60 ml/min/1.73 sqM); Albumin 3.7 g/dL (3.5-5.0); Alkaline Phosphatase 81 U/L (38-126); Anion Gap 11 mmol/L; Blood Urea Nitrogen 10 mg/dL (9-20); Carbon Dioxide 23 mmol/L (22-30); Chloride 100 mmol/L (98-107); Glucose 94 mg/dL (74-99); Magnesium 1.6 mg/dL (1.6-2.3); Non-African American GFR(CKD) >90 (>60 ml/min/1.73 sqM); Potassium 4.9 mmol/L (3.5-5.1); Sodium 134 mmol/L (137-145); Total Bilirubin 0.6 mg/dL (0.2-1.3); Total Protein 7.3 g/dL (6.3-8.2)
[2023-08-26] MEDS: SODIUM CHLORIDE 0.9% 2,000 ML IV ONE (18:53)
[2023-08-26] MEDS ORDERED: NALOXONE 0.4 MG/ML 1 ML VIAL IV PRN (19:04)
[2023-08-26] MEDS: AZITHROMYCIN 500 MG in SODIUM CHLORIDE 0.9% 250 ML IVPB STA (19:54)
[2023-08-26 20:10] LABS: Partial Thromboplastin Time 28.2 sec (22.0-30.0); Prothrombin Time 10.8 sec (10.0-12.5)
[2023-08-26] MEDS: SODIUM CHLORIDE 0.9% 1,000 ML IV SCH (21:30)
--- NOTE | 2023-08-26 22:49 | CT ---
EXAMINATION TYPE: CT chest angio for PE CT DLP: 290.3 mGycm, Automated exposure control for dose reduction was used. DATE OF EXAM: 08/26/2023 8:50 PM COMPARISON: CT chest 08/14/2023 and before CLINICAL INDICATION:Male, 63 years old with history of dyspnea, elevated dimer; Dyspnea, elevated D-d florence. History of lung cancer.[id number] TECHNIQUE/CONTRAST: CTA scan of the thorax is performed with IV Contrast, patient injected with 100 ml mL of Isovue 370, MIP images are created and reviewed these are created on a separate workstation.. FINDINGS: There is adequate contrast bolus and timing. PULMONARY ARTERIES: There is no evidence for a filling defect within the pulmonary vasculature to sug gest acute pulmonary embolism. Pulmonary trunk is normal in size. Trunk measures 2.6 CM. HEART: Normal heart size.Moderate coronary artery calcification and/or stents. No appreciable perica rdial effusion. AORTA: Moderate atherosclerotic calcifications of the aorta and branches. Aortic root is 3.9 cm. Asc ending aorta is stable at 4.3 CM, descending is 2.8 CM. Aorta is considered fusiform aneurysmal in i ts ascending segment. No dissection is seen. LOWER NECK: No significant findings. MEDIASTINUM: No gross evidence of adenopathy. SOFT TISSUES/LYMPH NODES: Unremarkable soft tissues. No axillary adenopathy. LUNGS/ PLEURA: Consolidative opacity in the left upper lobe and hilum again seen. Consolidation exten ds along the oblique fissure from close to the apex to the lingula; this has increased somewhat in ex tent, and there are increased interstitial and groundglass opacities seen along the margins of the co nsolidation. Otherwise, there is no new consolidation, effusion, or pneumothorax. Elevated left rai diaphragm again noted. AIRWAY: Central airways are patent. MUSCULOSKELETAL: No acute osseous abnormality. Mild/moderate degenerative changes of the thoracic spi ne. UPPER ABDOMEN: Stable appearance. No acute findings. IMPRESSION: 1. No evidence of pulmonary embolism. 2. Sight interval worsening of airspace opacities in the left upper lobe, could be due to posttreatm ent changes/pneumonitis, infection, or even active malignant involvement. 3. Stable 4.1 cm fusiform aneurysm of the ascending aorta.
[2023-08-26] MEDS: SIMETHICONE 80 MG CHEWABLE PO SCH (22:56)
[2023-08-26] MEDS ORDERED: ACETAMINOPHEN TAB 500 MG TAB PO PRN (23:18)
[2023-08-26] MEDS: MELATONIN 5 MG TABLET PO PRN (23:23)
[2023-08-26] MEDS: SIMETHICONE 80 MG CHEWABLE PO PRN (23:24)
[2023-08-26] MEDS: LATANOPROST 0.005% OPHTH DROPS 2.5 ML BTL BOTH EYES SCH (23:25)
[2023-08-27] MEDS ORDERED: ALBUTEROL NEBULIZED 2.5 MG/3 ML INHALATION PRN (08:24)
[2023-08-27] MEDS: HEPARIN SODIUM,PORCINE 5,000 UNIT/ML 1 ML VIAL SQ SCH (10:00)
[2023-08-27] MEDS: LOSARTAN 50 MG TAB PO SCH (10:00)
[2023-08-27] MEDS: FAMOTIDINE 20 MG/2 ML VIAL IV SCH (10:00)
[2023-08-27] MEDS: LORATADINE 10 MG TAB PO SCH (10:00)
[2023-08-27] MEDS: PIPERACILLIN-TAZOBACTAM 3.375 GM in SODIUM CHLORIDE 0.9% 100 ML IVPB SCH (10:01)
[2023-08-27] MEDS: DOXYCYCLINE 100 MG in SODIUM CHLORIDE 0.9% 100 ML IVPB SCH (10:11)
[2023-08-27 10:22] LABS: HCT 46.7 % (39.0-53.0); HGB 14.8 gm/dL (13.0-17.5); MCH 35.9 pg (25.0-35.0); MCHC 31.8 g/dL (31.0-37.0); MCV 113.1 fL (80.0-100.0); Macrocytosis Marked; Platelet Count 569 k/uL (150-450); RBC 4.13 m/uL (4.30-5.90); RDW 11.4 % (11.5-15.5)
--- NOTE | 2023-08-27 10:25 | XR ---
EXAMINATION TYPE: XR chest 1V portable DATE OF EXAM: 08/27/2023 COMPARISON: 08/26/2023 INDICATION: Pneumonia TECHNIQUE: Single frontal view of the chest is obtained. FINDINGS: The heart size is normal. The pulmonary vasculature is normal. Left upper lobe infiltrate has similar appearance to prior study. Some stranding at the level of the aortic arch is present with chronic elevation left diaphragm. IMPRESSION: 1. Stable appearance frontal chest. Continued follow-up is recommended
[2023-08-27 10:34] LABS: African American GFR (CKD) >90 (>60 ml/min/1.73 sqM); Anion Gap 11 mmol/L; Blood Urea Nitrogen 8 mg/dL (9-20); Carbon Dioxide 28 mmol/L (22-30); Chloride 99 mmol/L (98-107); Glucose 94 mg/dL (74-99); Non-African American GFR(CKD) >90 (>60 ml/min/1.73 sqM); Potassium 4.3 mmol/L (3.5-5.1); Sodium 138 mmol/L (137-145)
--- NOTE | 2023-08-27 12:17 | P.HPIM ---
History of Present Illness H&P Date: 08/27/23 Chief Complaint: Shortness of breath * 63-year-old gentleman with past medical history significant for hypertension, history of invasive non-small cell poorly differentiated adenocarcinoma presents to the emergency department with complaints of shortness of breath. Patient states symptom has that has been for at least 2 weeks and has been having worsening shortness of breath. Patient is currently receiving chemotherapy. Patient does not have high-grade fever of 101. Patient has been complaining of chest pain as well. Patient follows up with oncology Dr. Barreto and is scheduled for treatment outpatient. Patient was sent into the emergency department for further workup * While in ER patient had CBC done which showed WBC count of 11.8 hemoglobin of 16.9 platelet count of 677. INR of 1 D-dimer of 1.33 * Patient had a CT chest done which was negative for pulm embolism worsening opacities in left upper lobe was noted concern for posttreatment changes pneumonitis versus infection. Stable 4.1 cm aneurysm of ascending aorta was noted * At the time of presentation in ER patient was given a fluid bolus and given 90 antibiotics including Rocephin and azithromycin. * Patient to be admitted to medical floor with consultation from infectious disease as well as oncology REVIEW OF SYSTEMS: Cough, pleuritic chest pain CONSTITUTIONAL: No fever, no malaise, no fatigue. HEENT: No recent visual problems or hearing problems. Denied any sore throat. CARDIOVASCULAR: Cough, pleuritic chest pain PULMONARY: Cough, pleuritic chest pain GASTROINTESTINAL: No diarrhea, no nausea, no vomiting, no abdominal pain. NEUROLOGICAL: No headaches, no weakness, no numbness. HEMATOLOGICAL: Denies any bleeding or petechiae. GENITOURINARY: Denies any burning micturition, frequency, or urgency. MUSCULOSKELETAL/RHEUMATOLOGICAL: Denies any joint pain, swelling, or any muscle pain. ENDOCRINE: Denies any polyuria or polydipsia. PHYSICAL EXAMINATION: GENERAL: The patient is alert and oriented x3, ill appearance HEENT: Pupils are round and equally reacting to light. EOMI. CARDIOVASCULAR: S1 and S2 present. No murmurs, rubs, or gallops. PULMONARY: Chest is clear to auscultation, no wheezing or crackles. ABDOMEN: Soft, nontender, nondistended, normoactive bowel sounds. No palpable organomegaly. MUSCULOSKELETAL: No joint swelling or deformity. EXTREMITIES: No cyanosis, clubbing, or pedal edema. NEUROLOGICAL: Gross neurological examination did not reveal any focal deficits. SKIN: No rashes. Assessment and plan * Left upper lobe pneumonia * History of adenocarcinoma of lung receiving active treatment * Sepsis secondary to pneumonia * Hypertension * Acute mild hyponatremia * In regards to left upper lobe pneumonia, CT chest reviewed, negative for pulmonary embolism. Patient started on IV antibiotics escalated to Zosyn and doxycycline, history of immune suppression * In regards to history of adenocarcinoma receiving treatment, oncology consulted active treatment on hold while patient is recovering from pneumonia and sepsis * In regards to sepsis patient resuscitated with fluid, encourage oral intake, blood cultures collected infectious disease consulted * In regards to hypertension continue patient on Cozaar * In regards to mild hyponatremia resuscitated with fluid follow-up blood work ordered * CODE STATUS is full code Past Medical History Past Medical History: Eye Disorder, Hypertension Additional Past Medical History / Comment(s): GLAUCOMA, MASS FOUND IN LT UPPER LOBE, PARALYZED VOCAL CORD History of Any Multi-Drug Resistant Organisms: None Reported Past Surgical History: Hernia Repair Additional Past Surgical History / Comment(s): BILAT CATARACTS REMOVED WITH LENS IMPLANTS, hernia repair Past Anesthesia/Blood Transfusion Reactions: No Reported Reaction Past Psychological History: No Psychological Hx Reported Smoking Status: Former smoker Past Alcohol Use History: Daily, Heavy Additional Past Alcohol Use History / Comment(s): QIT SMOKING 2019, Patient drinks beer up to 7-10 per day or more for many years. Patient lives at home with his . He does not have oxygen. He does not require cane or walker at home. Past Drug Use History: None Reported - Past Family History Mother Family Medical History: Cancer Additional Family Medical History / Comment(s): mother of pneumonia with history of breast cancer. Father Family Medical History: Hypertension Additional Family Medical History / Comment(s): father still living. Brother(s) Additional Family Medical History / Comment(s): Siblings have no major medical problems. Medications and Allergies Home Medications Medication Instructions Recorded Confirmed Type Losartan [Cozaar] 50 mg PO DAILY 09/30/15 08/26/23 History Albuterol Inhaler [Ventolin Hfa 2 puff INHALATION RT-Q6H PRN 12/08/18 08/26/23 History Inhaler] Loratadine [Claritin] 10 mg PO DAILY 09/01/22 08/26/23 History Bimatoprost [Lumigan 0.01% Ophth 1 drop BOTH EYES HS 08/26/23 08/26/23 History Soln] Excedrin Pm 1 tab PO HS 08/26/23 08/26/23 History Simethicone [Gas-X] 125 mg PO HS 08/26/23 08/26/23 History predniSONE 5 mg PO DAILY 08/26/23 08/26/23 History Allergies Allergy/AdvReac Type Severity Reaction Status Date / Time No Known Allergies Allergy Verified 08/26/23 19:22 Physical Exam Vitals: Vital Signs Temp Pulse Resp BP Pulse Ox 08/27/23 05:57 87 16 162/95 95 08/27/23 02:49 96 16 142/86 92 L 08/27/23 00:46 92 16 153/92 94 L 08/26/23 23:34 99.2 F 93 16 155/91 94 L 08/26/23 21:30 103 H 18 154/100 97 08/26/23 18:56 97.4 F L 104 H 18 157/96 95 08/26/23 17:11 20 08/26/23 17:09 123 H 08/26/23 15:54 101.0 F H 119 H 20 170/99 97 Intake and Output 08/26/23 08/27/23 08/27/23 22:59 06:59 14:59 Other: Weight 70.76 kg Results CBC & Chem 7: 08/27/23 09:26 08/27/23 09:26 Labs: Abnormal Lab Results - Last 24 Hours (Table) 08/26/23 08/26/23 08/26/23 Range/Units 17:04 17:45 19:27 WBC 11.8 H (3.8-10.6) k/uL MCV 111.3 H (80.0-100.0) fL MCH 36.0 H (25.0-35.0) pg RDW 11.4 L (11.5-15.5) % Plt Count 677 H (150-450) k/uL Neutrophils # 10.2 H (1.3-7.7) k/uL Lymphocytes # 0.7 L (1.0-4.8) k/uL Macrocytosis Marked A D-Dimer 1.33 H (<0.60) mg/L FEU Sodium 134 L (137-145) mmol/L Creatinine 0.45 L (0.66-1.25) mg/dL
[2023-08-27] MEDS ORDERED: AZITHROMYCIN 500 MG TAB PO SCH (18:00)
[2023-08-27] MEDS: SIMETHICONE 80 MG CHEWABLE PO SCH (20:11)
[2023-08-27] MEDS: ASPIRIN 81 MG PO SCH (20:12)
[2023-08-27] MEDS: diphenhydrAMINE 25 MG CAP PO SCH (20:12)
[2023-08-27] MEDS: ACETAMINOPHEN TAB 500 MG TAB PO SCH (20:15)
[2023-08-27] MEDS ORDERED: LATANOPROST 0.005% OPHTH DROPS 2.5 ML BTL BOTH EYES SCH (21:00)
--- NOTE | 2023-08-27 21:01 | P.CONS ---
History of Present Illness - Reason for Consult Consult date: 08/27/23 lung cancer Requesting physician: Kathi Salazar - Chief Complaint SOB, fever - History of Present Illness Patient is a 63-year-old gentleman with a history of lung adenocarcinoma. He is a patient of Dr. Pallavi Barreto. He initially presented 1-2 years of hoarseness in his voice. He was evaluated by Dr. Garcia of ENT. Laryngoscopy and nasopharyngoscopy on 08/08/2022 revealed no abnormal masses or lesions with left vocal cord paralysis. CT of the neck and soft tissue on 08/22/2022 noted no lesions in the head or neck region, but noted left upper lobe perihilar lesion measuring 5.4 cm in the largest dimension with less than 180 degrees involvement of the proximal left common carotid with more than 180 degree encasement of the proximal left subclavian artery. Invasion into the mediastinum with abutment of the left proximal common carotid and subclavian arteries were noted. Bronchoscopy with EBUS of the mass on 09/04/2022 was nondiagnostic but revealed atypical clusters of cells suspicious for non-small cell lung cancer. PET/CT on 09/20/2022 revealed left upper lobe mass involving the mediastinum measuring 4.4 cm in the largest dimension with SUV of 11.8. It was thought to be a lymph node in the mediastinum with SUV measuring 3.3. Left anterior mediastinal anatomy with mediastinal lymph node biopsy performed on 09/25/2022 positive for invasive poorly differentiated adenocarcinoma that was positive for CAM 5.2, CK7, TTF-1. It was negative for CK20, CD56, and synaptophysin. There was noted to be weak focal p40 positivity with potential of focal squamous differentiation. Brain MRI on 10/03/2022 revealed no evidence of intracranial metastases. NGS and [employer] noted no targetable mutations. PD-L1 was noted to be between 25 to 30% with high TMB. Following discussion with Dr. Posadas radiation oncology, decision was made to proceed with concurrent chemoradiotherapy.He initiated treatment on 10/28/2022 and completed cycle 6 of carboplatin/paclitaxel on 12/04/2022 with RT completed on 12/16/2022. Post-treatment CT chest/abdomen on 12/19/2022 noted partial response. Cycle 1 of durvalumab was initiated on 01/08/23 and most recently completed cycle 8 on 07/29/2023. CT chest/abdomen on 03/12/2023 revealed no evidence of disease progression. Recommended continuing durvalumab monthly for 1 year per the PACIFIC trial. Patient presented to the clinic for cycle 9 of treatment and was found to be tachycardic with heart rate of 120 and temperature of 101. Patient was complaining of increasing shortness of breath over the last 2 weeks at which time treatment was held and he was referred to the ER for further evaluation to rule out PE. Upon presentation CTA chest was negative for pulmonary embolism with slight interval worsening of airspace opacities in left upper lobe. Stable 4.1 cm fusiform aneurysm of the ascending aorta. Chest x-ray showed no definitive acute process. With COPD changes worse on the right with expanded inspiration on the right. Left lung demonstrates increased reticulation with consolidative changes in the left upper lobe which remain present, findings similar to 08/14/2023. D-dimer elevated at 1.33. Troponin negative. Viral panel negative. T max 101.0. Zosyn and doxycycline started. Patient does report experiencing chills, shortness of breath and cough over the last couple weeks but states he did not take his temperature. Denies hemoptysis. Blood cultures and sputum culture have been ordered. Review of Systems 10 point ROS is negative except as stated in the HPI Past Medical History Past Medical History: Eye Disorder, Hypertension Additional Past Medical History / Comment(s): GLAUCOMA, MASS FOUND IN LT UPPER LOBE, PARALYZED VOCAL CORD History of Any Multi-Drug Resistant Organisms: None Reported Past Surgical History: Hernia Repair Additional Past Surgical History / Comment(s): BILAT CATARACTS REMOVED WITH LENS IMPLANTS, hernia repair Past Anesthesia/Blood Transfusion Reactions: No Reported Reaction Past Psychological History: No Psychological Hx Reported Smoking Status: Former smoker Past Alcohol Use History: Daily, Heavy Additional Past Alcohol Use History / Comment(s): QIT SMOKING 2019, Patient drinks beer up to 7-10 per day or more for many years. Patient lives at home with his . He does not have oxygen. He does not require cane or walker at home. Past Drug Use History: None Reported - Past Family History Mother Family Medical History: Cancer Additional Family Medical History / Comment(s): mother of pneumonia with history of breast cancer. Father Family Medical History: Hypertension Additional Family Medical History / Comment(s): father still living. Brother(s) Additional Family Medical History / Comment(s): Siblings have no major medical problems. Medications and Allergies Home Medications Medication Instructions Recorded Confirmed Type Losartan [Cozaar] 50 mg PO DAILY 09/30/15 08/26/23 History Albuterol Inhaler [Ventolin Hfa 2 puff INHALATION RT-Q6H PRN 12/08/18 08/26/23 History Inhaler] Loratadine [Claritin] 10 mg PO DAILY 09/01/22 08/26/23 History Bimatoprost [Lumigan 0.01% Ophth 1 drop BOTH EYES HS 08/26/23 08/26/23 History Soln] Excedrin Pm 1 tab PO HS 08/26/23 08/26/23 History Simethicone [Gas-X] 125 mg PO HS 08/26/23 08/26/23 History predniSONE 5 mg PO DAILY 08/26/23 08/26/23 History Allergies Allergy/AdvReac Type Severity Reaction Status Date / Time No Known Allergies Allergy Verified 08/26/23 19:22 Physical Exam Vitals: Vital Signs Temp Pulse Resp BP Pulse Ox 08/27/23 05:57 87 16 162/95 95 08/27/23 02:49 96 16 142/86 92 L 08/27/23 00:46 92 16 153/92 94 L 08/26/23 23:34 99.2 F 93 16 155/91 94 L 08/26/23 21:30 103 H 18 154/100 97 08/26/23 18:56 97.4 F L 104 H 18 157/96 95 08/26/23 17:11 20 08/26/23 17:09 123 H 08/26/23 15:54 101.0 F H 119 H 20 170/99 97 Intake and Output 08/26/23 08/27/23 08/27/23 22:59 06:59 14:59 Other: Weight 70.76 kg - Constitutional General appearance: no acute distress - EENT Eyes: anicteric sclerae, EOMI ENT: hearing grossly normal - Respiratory Respiratory: right: CTA, left: rales - Cardiovascular Rhythm: regular Heart sounds: normal: S1, S2 - Gastrointestinal General gastrointestinal: soft, no tenderness - Integumentary Integumentary: no cyanotic - Neurologic Neurologic: CNII-XII intact - Musculoskeletal Musculoskeletal: strength equal bilaterally - Psychiatric Psychiatric: A&O x's 3 Results CBC & Chem 7: 08/27/23 09:26 08/27/23 09:26 Labs: Abnormal Lab Results - Last 24 Hours (Table) 08/26/23 08/26/23 08/26/23 Range/Units 17:04 17:45 19:27 WBC 11.8 H (3.8-10.6) k/uL RBC (4.30-5.90) m/uL MCV 111.3 H (80.0-100.0) fL MCH 36.0 H (25.0-35.0) pg RDW 11.4 L (11.5-15.5) % Plt Count 677 H (150-450) k/uL Neutrophils # 10.2 H (1.3-7.7) k/uL Lymphocytes # 0.7 L (1.0-4.8) k/uL Macrocytosis Marked A D-Dimer 1.33 H (<0.60) mg/L FEU Sodium 134 L (137-145) mmol/L BUN (9-20) mg/dL Creatinine 0.45 L (0.66-1.25) mg/dL 08/27/23 08/27/23 Range/Units 09:26 09:26 WBC 11.0 H (3.8-10.6) k/uL RBC 4.13 L (4.30-5.90) m/uL MCV 113.1 H (80.0-100.0) fL MCH 35.9 H (25.0-35.0) pg RDW 11.4 L (11.5-15.5) % Plt Count 569 H (150-450) k/uL Neutrophils # (1.3-7.7) k/uL Lymphocytes # (1.0-4.8) k/uL Macrocytosis Marked A D-Dimer (<0.60) mg/L FEU Sodium (137-145) mmol/L BUN 8 L (9-20) mg/dL Creatinine 0.43 L (0.66-1.25) mg/dL Chest x-ray: report reviewed CT scan - chest: report reviewed Assessment and Plan (1) Pneumonia Current Visit: Yes Status: Acute Priority: High Code(s): J18.9 - PNEUMONIA, UNSPECIFIED ORGANISM SNOMED Code(s): 529390952 (2) Adenocarcinoma, lung Current Visit: Yes Status: Acute Priority: High Code(s): C34.90 - MALIGNANT NEOPLASM OF UNSP PART OF UNSP BRONCHUS OR LUNG SNOMED Code(s): 114833886 Plan: Pneumonia: Presented with SOB and fever. SOB progressing x 2 weeks with associated chills. Fever 101 upon admission -CTA chest was negative for pulmonary embolism with slight interval worsening of airspace opacities in left upper lobe. Stable 4.1 cm fusiform aneurysm of the ascending aorta. Chest x-ray showed no definitive acute process. With COPD changes worse on the right with expanded inspiration on the right. Left lung demonstrates increased reticulation with consolidative changes in the left upper lobe which remain present, findings similar to 08/14/2023. D-dimer elevated at 1.33. Troponin negative. Viral panel negative. T max 101.0. Zosyn and doxycycline started - Blood cultures and sputum culture have been ordered - Upon review of CT scan, does not appear to be consistent with pneumonitis but more likely consolidative changes in ARMEN consistent with pneumonia. Agree with abx treatment - ID consulted Lung adenocarcnioma: -Full oncological history in HPI -Completed cycle 8 durvalumab on 07/29/2023. Patient presented to the clinic for cycle 9 of treatment on 08/26/23 and was found to be tachycardic with heart rate of 120 and temperature of 101. Patient was complaining of increasing shortness of breath over the last 2 weeks at which time treatment was held and he was referred to the ER for further evaluation -Treatment will be held until abx completed. Clinic f/u scheduled next week to reevaluate pt prior to resuming treatment attests: I have performed H&P and developed impression and plan of care for patient, discussed with dictator. I agree with dictated note, documented as a scribe
--- NOTE | 2023-08-27 21:07 | P.CONS ---
History of Present Illness - Reason for Consult Consult date: 08/27/23 - History of Present Illness Patient is a 63-year-old male with a past medical history significant for hypertension glaucoma, and a history of non-small cell poorly differentiated adenocarcinoma currently on chemotherapy presenting to the hospital with increasing shortness of breath patient symptom has been getting worse for the last few days and the patient also have a fever of 101 F for the patient present to the hospital patient denies having any headache he did have hoarseness of voice but no other URI symptoms. Denies having any chest pain he did have a cough but not bring up any sputum patient denies having any nausea or vomiting no abdominal pain and no diarrhea no urinary symptoms on presentation to the hospital he did have a fever of 101 F patient was tachycardic but not hypotensive or hypoxic patient did have white count of 11.8 with a left shift creatinine 0.45 liver enzymes are normal, influenza RSV COVID testing has been negative patient did have a chest x-ray no definite acute process COPD changes worse on the right with extended expiration on the right patient did have a CT angiogram of the chest consulted opacity in the left upper lobe and hilum again seen concentration extends along the oblique fissure from close Of the lingula patient was started on doxycycline and Zosyn admitted to hospital infectious was consulted for further management of antibiotic therapy Past Medical History Past Medical History: Eye Disorder, Hypertension Additional Past Medical History / Comment(s): GLAUCOMA, MASS FOUND IN LT UPPER LOBE, PARALYZED VOCAL CORD History of Any Multi-Drug Resistant Organisms: None Reported Past Surgical History: Hernia Repair Additional Past Surgical History / Comment(s): BILAT CATARACTS REMOVED WITH LENS IMPLANTS, hernia repair Past Anesthesia/Blood Transfusion Reactions: No Reported Reaction Past Psychological History: No Psychological Hx Reported Smoking Status: Former smoker Past Alcohol Use History: Daily, Heavy Additional Past Alcohol Use History / Comment(s): QIT SMOKING 2019, Patient drinks beer up to 7-10 per day or more for many years. Patient lives at home with his . He does not have oxygen. He does not require cane or walker at home. Past Drug Use History: None Reported - Past Family History Mother Family Medical History: Cancer Additional Family Medical History / Comment(s): mother of pneumonia with history of breast cancer. Father Family Medical History: Hypertension Additional Family Medical History / Comment(s): father still living. Brother(s) Additional Family Medical History / Comment(s): Siblings have no major medical problems. Medications and Allergies Home Medications Medication Instructions Recorded Confirmed Type Losartan [Cozaar] 50 mg PO DAILY 09/30/15 08/26/23 History Albuterol Inhaler [Ventolin Hfa 2 puff INHALATION RT-Q6H PRN 12/08/18 08/26/23 History Inhaler] Loratadine [Claritin] 10 mg PO DAILY 09/01/22 08/26/23 History Bimatoprost [Lumigan 0.01% Ophth 1 drop BOTH EYES HS 08/26/23 08/26/23 History Soln] Excedrin Pm 1 tab PO HS 08/26/23 08/26/23 History Simethicone [Gas-X] 125 mg PO HS 08/26/23 08/26/23 History predniSONE 5 mg PO DAILY 08/26/23 08/26/23 History Allergies Allergy/AdvReac Type Severity Reaction Status Date / Time No Known Allergies Allergy Verified 08/26/23 19:22 Physical Exam Vitals: Vital Signs Temp Pulse Resp BP Pulse Ox 08/27/23 05:57 87 16 162/95 95 08/27/23 02:49 96 16 142/86 92 L 08/27/23 00:46 92 16 153/92 94 L 08/26/23 23:34 99.2 F 93 16 155/91 94 L 08/26/23 21:30 103 H 18 154/100 97 08/26/23 18:56 97.4 F L 104 H 18 157/96 95 08/26/23 17:11 20 08/26/23 17:09 123 H 08/26/23 15:54 101.0 F H 119 H 20 170/99 97 Intake and Output 08/26/23 08/27/23 08/27/23 22:59 06:59 14:59 Other: Weight 70.76 kg Results CBC & Chem 7: 08/28/23 07:17 08/28/23 07:17 Labs: Abnormal Lab Results - Last 24 Hours (Table) 08/26/23 08/26/23 08/26/23 Range/Units 17:04 17:45 19:27 WBC 11.8 H (3.8-10.6) k/uL RBC (4.30-5.90) m/uL MCV 111.3 H (80.0-100.0) fL MCH 36.0 H (25.0-35.0) pg RDW 11.4 L (11.5-15.5) % Plt Count 677 H (150-450) k/uL Neutrophils # 10.2 H (1.3-7.7) k/uL Lymphocytes # 0.7 L (1.0-4.8) k/uL Macrocytosis Marked A D-Dimer 1.33 H (<0.60) mg/L FEU Sodium 134 L (137-145) mmol/L BUN (9-20) mg/dL Creatinine 0.45 L (0.66-1.25) mg/dL 08/27/23 08/27/23 Range/Units 09:26 09:26 WBC 11.0 H (3.8-10.6) k/uL RBC 4.13 L (4.30-5.90) m/uL MCV 113.1 H (80.0-100.0) fL MCH 35.9 H (25.0-35.0) pg RDW 11.4 L (11.5-15.5) % Plt Count 569 H (150-450) k/uL Neutrophils # (1.3-7.7) k/uL Lymphocytes # (1.0-4.8) k/uL Macrocytosis Marked A D-Dimer (<0.60) mg/L FEU Sodium (137-145) mmol/L BUN 8 L (9-20) mg/dL Creatinine 0.43 L (0.66-1.25) mg/dL Assessment and Plan Plan: 1patient to the hospital with sepsis in this patient who did have a fever tachy cardia elevated white count source likely pneumonia question of gram-negative versus postobstructive in this patient who did have a history of poorly differentiated adenocarcinoma on chemotherapy 2-we will try to obtain a sputum for Gram stain culture check a CRP procalcitonin level 3-Zosyn 3.37 g. Every 8 hour should provide adequate antibiotic coverage We will follow on clinical condition and cultures to further adjust medication if needed Thank you for this consultation we will follow the patient along with you Dictation was produced using [employer] dictation software. please excuse any gramm atical, word or spelling errors. Time with Patient: Greater than 30
[2023-08-27] MEDS: BIMATOPROST 0.01% BOTH EYES SCH (22:32)
[2023-08-28 11:18] LABS: HCT 42.2 % (39.6-50.0); HGB 14.1 g/dL (13.0-17.0); MCH 36.7 pg (27.0-32.0); MCHC 33.4 g/dL (32.0-37.0); MCV 109.9 FL (80.0-97.0); Mean Platelet Volume 8.4 FL (9.5-12.2); NRBC Per 100 WBC 0 X 10*3/uL (0.00-0.01); Platelet Count 458 X 10*3/uL (140-440); RBC 3.84 X 10*6/uL (4.40-5.60); WBC 10.34 X 10*3/uL (4.50-10.00)
[2023-08-28 11:21] LABS: BUN/Creat Ratio 14.67 Ratio (12.00-20.00); Blood Urea Nitrogen 8.8 mg/dL (9.0-27.0); Calcium 8.9 mg/dL (8.7-10.3); Chloride 101 mmol/L (96-109); Glucose 88 mg/dL (70-110); Potassium 4.5 mmol/L (3.5-5.5); Sodium 139 mmol/L (135-145)
[2023-08-28 11:51] LABS: Basophils # (A) 0.08 X 10*3/uL (0.00-0.10); Basophils % (A) 0.8 %; Eosinophils # (A) 0.19 X 10*3/uL (0.04-0.35); Eosinophils % (A) 1.8 %; Lymphocytes # (A) 0.81 X 10*3/uL (0.90-5.00); Lymphocytes % (A) 7.8 %; Macrocytosis (M) 2+; Monocytes # (A) 1.53 X 10*3/uL (0.20-1.00); Monocytes % (A) 14.8 %; Neutrophils # (A) 7.66 X 10*3/uL (1.80-7.70); Neutrophils % (A) 74.1 %
--- NOTE | 2023-08-28 16:01 | P.PN ---
Subjective Progress Note Date: 08/28/23 Principal diagnosis: Reason for follow-up is fever and pneumonia Patient is a 63-year-old male with a past medical history significant for hypertension glaucoma, and a history of non-small cell poorly differentiated adenocarcinoma currently on chemotherapy presenting to the hospital with increasing shortness of breath and the patient did have a fever CT angiogram of the chest opacity left upper lobe and hilum concerning for possible pneumonia. On today's evaluation that is 08/28/2023, patient did have resolution of his fever and is afebrile, patient is breathing comfortably and is currently on room air, patient denies having any significant cough no chest pain shortness of breath, patient denies nausea vomiting or diarrhea and no abdominal pain, feeling better. Patient white count is down to 10.34, creatinine 0.6 Objective - Vital Signs Vital signs: Vital Signs Temp 98.2 F 08/28/23 11:50 Pulse 111 H 08/28/23 11:50 Resp 18 08/28/23 11:50 BP 164/98 08/28/23 11:50 Pulse Ox 95 08/28/23 11:50 FiO2 Intake & Output 08/27/23 08/28/23 08/28/23 18:59 06:59 18:59 Intake Total 1760 Balance 1760 Weight 70.76 kg Intake: Intake, IV Titration 1400 Amount Doxycycline 100 mg In 100 Sodium Chloride 0.9% 100 ml @ 100 mls/hr IVPB Q12HR [facility] Rx#:[id number] Piperacillin-Tazobactam 3 100 .375 gm In Sodium Chloride 0.9% 100 ml @ 25 mls/hr IVPB Q8HR [facility] Rx# :[id number] Sodium Chloride 0.9% 1, 1200 000 ml @ 130 mls/hr IV . Q7H42M KOLE Rx#:[id number] Oral 360 Other: Voiding Method Toilet # Voids 2 - Exam GENERAL DESCRIPTION: An elderly male lying in bed in no distress RESPIRATORY SYSTEM: Unlabored breathing , decreased breath sounds at bases HEART: S1 S2 regular rate and rhythm , ABDOMEN: Soft , no tenderness EXTREMITIES: No edema feet - Labs CBC & Chem 7: 08/28/23 07:17 08/28/23 07:17 Labs: Abnormal Lab Results - Last 24 Hours (Table) 08/28/23 08/28/23 Range/Units 07:17 07:17 WBC 10.34 H (4.50-10.00) X 10*3/uL RBC 3.84 L (4.40-5.60) X 10*6/uL MCV 109.9 H (80.0-97.0) FL MCH 36.7 H (27.0-32.0) pg Plt Count 458 H (140-440) X 10*3/uL MPV 8.4 L (9.5-12.2) FL Immature Gran # 0.07 H (0.00-0.04) X 10*3/uL Lymphocytes # 0.81 L (0.90-5.00) X 10*3/uL Monocytes # 1.53 H (0.20-1.00) X 10*3/uL Macrocytosis (manual) 2+ A BUN 8.8 L (9.0-27.0) mg/dL Microbiology - Last 24 Hours (Table) 08/26/23 17:30 Blood Culture - Preliminary Blood 08/26/23 17:45 Blood Culture - Preliminary Blood Assessment and Plan (1) Pneumonia Current Visit: Yes Status: Acute Priority: High Code(s): J18.9 - PNEUMONIA, UNSPECIFIED ORGANISM SNOMED Code(s): 720746765 (2) Leukocytosis Current Visit: Yes Status: Acute Code(s): D72.829 - ELEVATED WHITE BLOOD CELL COUNT, UNSPECIFIED SNOMED Code(s): 908875047 Plan: 1patient to the hospital with sepsis in this patient who did have a fever tachycardia elevated white count source likely pneumonia question of gram- negative versus postobstructive in this patient who did have a history of poorly differentiated adenocarcinoma on chemotherapy 2-sputum culture-requested again and currently waiting for CRP procalcitonin level 3-patient did have resolution of his fever and will continue with Zosyn 3.37 g. Every 8 hour while waiting for the workup to be completed Dictation was produced using [employer] dictation software. please excuse any grammatical, word or spelling errors. Time with Patient: Less than 30
--- NOTE | 2023-08-28 18:31 | P.PN ---
Subjective Progress Note Date: 08/28/23 * 63-year-old gentleman with past medical history significant for hypertension, history of invasive non-small cell poorly differentiated adenocarcinoma presents to the emergency department with complaints of shortness of breath. Patient states symptom has that has been for at least 2 weeks and has been villagran ving worsening shortness of breath. Patient is currently receiving chemotherapy. Patient does not have high-grade fever of 101. Patient has been complaining of chest pain as well. Patient follows up with oncology Dr. Barreto and is scheduled for treatment outpatient. Patient was sent into the emergency department for further workup * While in ER patient had CBC done which showed WBC count of 11.8 hemoglobin of 16.9 platelet count of 677. INR of 1 D-dimer of 1.33 * Patient had a CT chest done which was negative for pulm embolism worsening opacities in left upper lobe was noted concern for posttreatment changes pneumonitis versus infection. Stable 4.1 cm aneurysm of ascending aorta was noted * At the time of presentation in ER patient was given a fluid bolus and given 90 antibiotics including Rocephin and azithromycin. * Patient to be admitted to medical floor with consultation from infectious disease as well as oncology Objective - Vital Signs Vital signs: Vital Signs Temp 98.2 F 08/28/23 11:50 Pulse 111 H 08/28/23 11:50 Resp 18 08/28/23 11:50 BP 164/98 08/28/23 11:50 Pulse Ox 95 08/28/23 11:50 FiO2 Intake & Output 08/27/23 08/28/23 08/28/23 18:59 06:59 18:59 Intake Total 1760 Balance 1760 Weight 70.76 kg Intake: Intake, IV Titration 1400 Amount Doxycycline 100 mg In 100 Sodium Chloride 0.9% 100 ml @ 100 mls/hr IVPB Q12HR [facility] Rx#:[id number] Piperacillin-Tazobactam 3 100 .375 gm In Sodium Chloride 0.9% 100 ml @ 25 mls/hr IVPB Q8HR [facility] Rx# :[id number] Sodium Chloride 0.9% 1, 1200 000 ml @ 130 mls/hr IV . Q7H42M KO[facility] Rx#:[id number] Oral 360 Other: Voiding Method Toilet # Voids 2 - Exam GENERAL: The patient is alert and oriented x3, ill appearance HEENT: Pupils are round and equally reacting to light. EOMI. CARDIOVASCULAR: S1 and S2 present. No murmurs, rubs, or gallops. PULMONARY: Chest is clear to auscultation, no wheezing or crackles. ABDOMEN: Soft, nontender, nondistended, normoactive bowel sounds. No palpable organomegaly. MUSCULOSKELETAL: No joint swelling or deformity. EXTREMITIES: No cyanosis, clubbing, or pedal edema. NEUROLOGICAL: Gross neurological examination did not reveal any focal deficits. SKIN: No rashes. - Labs CBC & Chem 7: 08/28/23 07:17 08/28/23 07:17 Labs: Abnormal Lab Results - Last 24 Hours (Table) 08/28/23 08/28/23 Range/Units 07:17 07:17 WBC 10.34 H (4.50-10.00) X 10*3/uL RBC 3.84 L (4.40-5.60) X 10*6/uL MCV 109.9 H (80.0-97.0) FL MCH 36.7 H (27.0-32.0) pg Plt Count 458 H (140-440) X 10*3/uL MPV 8.4 L (9.5-12.2) FL Immature Gran # 0.07 H (0.00-0.04) X 10*3/uL Lymphocytes # 0.81 L (0.90-5.00) X 10*3/uL Monocytes # 1.53 H (0.20-1.00) X 10*3/uL Macrocytosis (manual) 2+ A BUN 8.8 L (9.0-27.0) mg/dL Microbiology - Last 24 Hours (Table) 08/26/23 17:30 Blood Culture - Preliminary Blood 08/26/23 17:45 Blood Culture - Preliminary Blood Assessment and Plan Assessment: * Left upper lobe pneumonia * History of adenocarcinoma of lung receiving active treatment * Sepsis secondary to pneumonia * Hypertension * Acute mild hyponatremia * In regards to left upper lobe pneumonia, CT chest reviewed, negative for pulmonary embolism. Patient started on IV antibiotics escalated to Zosyn and doxycycline, history of immune suppression * In regards to history of adenocarcinoma receiving treatment, oncology consulted active treatment on hold while patient is recovering from pneumonia and sepsis * In regards to sepsis patient resuscitated with fluid, encourage oral intake, blood cultures collected infectious disease consulted * In regards to hypertension continue patient on Cozaar * In regards to mild hyponatremia resuscitated with fluid follow-up blood work ordered * CODE STATUS is full code
[2023-08-29 09:27] LABS: Basophils # (A) 0.08 X 10*3/uL (0.00-0.10); Basophils % (A) 0.8 %; Eosinophils # (A) 0.22 X 10*3/uL (0.04-0.35); Eosinophils % (A) 2.1 %; HGB 13.1 g/dL (13.0-17.0); Lymphocytes # (A) 1.03 X 10*3/uL (0.90-5.00); Lymphocytes % (A) 9.7 %; MCH 36.5 pg (27.0-32.0); MCHC 33.6 g/dL (32.0-37.0); MCV 108.6 FL (80.0-97.0); Mean Platelet Volume 8.4 FL (9.5-12.2); Monocytes % (A) 17.8 %; NRBC Per 100 WBC 0 X 10*3/uL (0.00-0.01); Neutrophils # (A) 7.36 X 10*3/uL (1.80-7.70); Platelet Count 422 X 10*3/uL (140-440); RBC 3.59 X 10*6/uL (4.40-5.60); RDW 11.9 % (11.5-14.5); WBC 10.65 X 10*3/uL (4.50-10.00)
[2023-08-29 09:46] LABS: Blood Urea Nitrogen 7.3 mg/dL (9.0-27.0); Carbon Dioxide 24.7 mmol/L (21.6-31.8); Chloride 104 mmol/L (96-109); Glucose 93 mg/dL (70-110); Potassium 4.3 mmol/L (3.5-5.5); Sodium 140 mmol/L (135-145)
--- NOTE | 2023-08-29 16:58 | P.PN ---
Subjective Progress Note Date: 08/29/23 Principal diagnosis: Reason for follow-up is fever and pneumonia Patient is a 63-year-old male with a past medical history significant for hypertension glaucoma, and a history of non-small cell poorly differentiated adenocarcinoma currently on chemotherapy presenting to the hospital with increasing shortness of breath and the patient did have a fever CT angiogram of the chest opacity left upper lobe and hilum concerning for possible pneumonia. On today's evaluation that is 08/29/2023,the patient denies any fever or any chills, patient is breathing comfortably on room air, the patient denies chest pain shortness of breath and denies any worsening cough or sputum production, patient denies abdominal pain, no nausea vomiting or diarrhea. Patient white count is 10.65 creatinine 0.5 blood cultures so far pending Objective - Vital Signs Vital signs: Vital Signs Temp 98.0 F 08/29/23 13:15 Pulse 103 H 08/29/23 13:15 Resp 18 08/29/23 13:15 BP 164/93 08/29/23 13:15 Pulse Ox 98 08/29/23 13:15 FiO2 Intake & Output 08/28/23 08/29/23 08/29/23 18:59 06:59 18:59 Intake Total 1560 Balance 1560 Intake: Intake, IV Titration 1560 Amount Sodium Chloride 0.9% 1, 1560 000 ml @ 130 mls/hr IV . Q7H42M [facility], [facility] Rx#:[id number] Other: Voiding Method Toilet Toilet # Voids 3 - Exam GENERAL DESCRIPTION: An elderly male lying in bed in no distress RESPIRATORY SYSTEM: Unlabored breathing , decreased breath sounds at bases HEART: S1 S2 regular rate and rhythm , ABDOMEN: Soft , no tenderness EXTREMITIES: No edema feet - Labs CBC & Chem 7: 08/29/23 06:34 08/29/23 06:34 Labs: Abnormal Lab Results - Last 24 Hours (Table) 08/29/23 08/29/23 Range/Units 06:34 06:34 WBC 10.65 H (4.50-10.00) X 10*3/uL RBC 3.59 L (4.40-5.60) X 10*6/uL Hct 39.0 L (39.6-50.0) % MCV 108.6 H (80.0-97.0) FL MCH 36.5 H (27.0-32.0) pg MPV 8.4 L (9.5-12.2) FL Immature Gran # 0.06 H (0.00-0.04) X 10*3/uL Monocytes # 1.90 H (0.20-1.00) X 10*3/uL BUN 7.3 L (9.0-27.0) mg/dL Creatinine 0.5 L (0.6-1.5) mg/dL C-Reactive Protein 5.60 H (0.00-0.80) mg/dL Microbiology - Last 24 Hours (Table) 08/26/23 17:30 Blood Culture - Preliminary Blood 08/26/23 17:45 Blood Culture - Preliminary Blood Assessment and Plan (1) Pneumonia Current Visit: Yes Status: Acute Priority: High Code(s): J18.9 - PNEUMONIA, UNSPECIFIED ORGANISM SNOMED Code(s): 144708931 (2) Leukocytosis Current Visit: Yes Status: Acute Code(s): D72.829 - ELEVATED WHITE BLOOD CELL COUNT, UNSPECIFIED SNOMED Code(s): 085113335 Plan: 1patient to the hospital with sepsis in this patient who did have a fever tachycardia elevated white count source likely pneumonia question of gram- negative versus postobstructive in this patient who did have a history of poorly differentiated adenocarcinoma on chemotherapy 2-sputum culture-requested again and currently waiting for CRP procalcitonin level 3-patient did have resolution of his fever and will continue with Zosyn 3.37 g. Every 8 hour while waiting for the cultures to be completed Dictation was produced using [email or web address] dictation software. please excuse any grammatical, word or spelling errors. Time with Patient: Less than 30
--- NOTE | 2023-08-29 18:26 | P.PN ---
Subjective Progress Note Date: 08/29/23 * 63-year-old gentleman with past medical history significant for hypertension, history of invasive non-small cell poorly differentiated adenocarcinoma presents to the emergency department with complaints of shortness of breath. Patient states symptom has that has been for at least 2 weeks and has been villagran ving worsening shortness of breath. Patient is currently receiving chemotherapy. Patient does not have high-grade fever of 101. Patient has been complaining of chest pain as well. Patient follows up with oncology Dr. Barreto and is scheduled for treatment outpatient. Patient was sent into the emergency department for further workup * While in ER patient had CBC done which showed WBC count of 11.8 hemoglobin of 16.9 platelet count of 677. INR of 1 D-dimer of 1.33 * Patient had a CT chest done which was negative for pulm embolism worsening opacities in left upper lobe was noted concern for posttreatment changes pneumonitis versus infection. Stable 4.1 cm aneurysm of ascending aorta was noted * At the time of presentation in ER patient was given a fluid bolus and given 90 antibiotics including Rocephin and azithromycin. * Patient to be admitted to medical floor with consultation from infectious disease as well as oncology 08/29/2023 --patient is seen and evaluated in room at bedside; denies any fever or any chills, patient is breathing comfortably on room air, the patient denies chest pain shortness of breath and denies any worsening cough or sputum production, patient denies abdominal pain, no nausea vomiting or diarrhea. Vital signs reviewed temperature 98, pulse 103, respiration 18 and blood pressure 164/93 Blood work reveals WBC of 10.6, hemoglobin 13.1 and platelet count of 422, sodium 140, potassium 4.3, BUNs/creatinine of 7.3/0.56 -- Continue with current antibiotics as recommended by ID Objective - Vital Signs Vital signs: Vital Signs Temp 98.1 F 08/29/23 07:29 Pulse 110 H 08/29/23 07:29 Resp 20 08/29/23 07:29 BP 143/84 08/29/23 07:29 Pulse Ox 96 08/29/23 07:29 FiO2 Intake & Output 08/28/23 08/29/23 08/29/23 18:59 06:59 18:59 Intake Total 1560 Balance 1560 Intake: Intake, IV Titration 1560 Amount Sodium Chloride 0.9% 1, 1560 000 ml @ 130 mls/hr IV . Q7H42M [facility] Rx#:[id number] Other: Voiding Method Toilet Toilet # Voids 3 - Exam GENERAL: The patient is alert and oriented x3, ill appearance HEENT: Pupils are round and equally reacting to light. EOMI. CARDIOVASCULAR: S1 and S2 present. No murmurs, rubs, or gallops. PULMONARY: Chest is clear to auscultation, no wheezing or crackles. ABDOMEN: Soft, nontender, nondistended, normoactive bowel sounds. No palpable organomegaly. MUSCULOSKELETAL: No joint swelling or deformity. EXTREMITIES: No cyanosis, clubbing, or pedal edema. NEUROLOGICAL: Gross neurological examination did not reveal any focal deficits. SKIN: No rashes. - Labs CBC & Chem 7: 08/29/23 06:34 08/29/23 06:34 Labs: Abnormal Lab Results - Last 24 Hours (Table) 08/29/23 08/29/23 Range/Units 06:34 06:34 WBC 10.65 H (4.50-10.00) X 10*3/uL RBC 3.59 L (4.40-5.60) X 10*6/uL Hct 39.0 L (39.6-50.0) % MCV 108.6 H (80.0-97.0) FL MCH 36.5 H (27.0-32.0) pg MPV 8.4 L (9.5-12.2) FL Immature Gran # 0.06 H (0.00-0.04) X 10*3/uL Monocytes # 1.90 H (0.20-1.00) X 10*3/uL BUN 7.3 L (9.0-27.0) mg/dL Creatinine 0.5 L (0.6-1.5) mg/dL C-Reactive Protein 5.60 H (0.00-0.80) mg/dL Microbiology - Last 24 Hours (Table) 08/26/23 17:30 Blood Culture - Preliminary Blood 08/26/23 17:45 Blood Culture - Preliminary Blood Assessment and Plan Assessment: * Left upper lobe pneumonia * History of adenocarcinoma of lung receiving active treatment * Sepsis secondary to pneumonia * Hypertension * Acute mild hyponatremia * In regards to left upper lobe pneumonia, CT chest reviewed, negative for pulmonary embolism. Patient started on IV antibiotics escalated to Zosyn and doxycycline, history of immune suppression * In regards to history of adenocarcinoma receiving treatment, oncology consulted active treatment on hold while patient is recovering from pneumonia and sepsis * In regards to sepsis patient resuscitated with fluid, encourage oral intake, blood cultures collected infectious disease consulted * In regards to hypertension continue patient on Cozaar * In regards to mild hyponatremia resuscitated with fluid follow-up blood work ordered * CODE STATUS is full code
[2023-08-30 09:23] LABS: Basophils # (A) 0.09 X 10*3/uL (0.00-0.10); Basophils % (A) 0.9 %; Eosinophils # (A) 0.23 X 10*3/uL (0.04-0.35); Eosinophils % (A) 2.2 %; HCT 40.8 % (39.6-50.0); HGB 13.5 g/dL (13.0-17.0); Lymphocytes # (A) 0.95 X 10*3/uL (0.90-5.00); Lymphocytes % (A) 9.2 %; MCH 36.6 pg (27.0-32.0); MCHC 33.1 g/dL (32.0-37.0); MCV 110.6 FL (80.0-97.0); Mean Platelet Volume 8.5 FL (9.5-12.2); Monocytes # (A) 1.78 X 10*3/uL (0.20-1.00); Monocytes % (A) 17.3 %; NRBC Per 100 WBC 0 X 10*3/uL (0.00-0.01); Neutrophils # (A) 7.17 X 10*3/uL (1.80-7.70); Neutrophils % (A) 69.7 %; Platelet Count 438 X 10*3/uL (140-440); RBC 3.69 X 10*6/uL (4.40-5.60); RDW 11.8 % (11.5-14.5); WBC 10.29 X 10*3/uL (4.50-10.00)
[2023-08-30 09:45] LABS: BUN/Creat Ratio 10.17 Ratio (12.00-20.00); Blood Urea Nitrogen 6.1 mg/dL (9.0-27.0); Carbon Dioxide 23.7 mmol/L (21.6-31.8); Chloride 103 mmol/L (96-109); Glucose 96 mg/dL (70-110); Potassium 4.1 mmol/L (3.5-5.5); Sodium 139 mmol/L (135-145)
[2023-08-30 09:46] LABS: Calcium 9.2 mg/dL (8.7-10.3)
[2023-08-30 13:04] VITALS: RESP 20; TEMP 99.9
[2023-08-30] MEDS: hydrALAZINE HCL 20 MG/ML 1 ML VIAL IVP STA (15:01)
[2023-08-30 16:01] VITALS: BP 135/76; PULSE 103
--- NOTE | 2023-08-30 16:28 | P.PN ---
Subjective Progress Note Date: 08/30/23 Principal diagnosis: Reason for follow-up is fever and pneumonia Patient is a 63-year-old male with a past medical history significant for hypertension glaucoma, and a history of non-small cell poorly differentiated adenocarcinoma currently on chemotherapy presenting to the hospital with increasing shortness of breath and the patient did have a fever CT angiogram of the chest opacity left upper lobe and hilum concerning for possible pneumonia. On today's evaluation that is 08/30/2023,the patient did have a low-grade fever of 99.9 F, patient is on room air not requiring supplemental oxygen and denies any shortness of breath no chest pain or worsening cough.Patient denies having any nausea or vomiting, no abdominal pain and no diarrhea, patient is feeling better wants to go home. Patient white count is 10.29, creatinine 0.6 Objective - Vital Signs Vital signs: Vital Signs Temp 99.9 F H 08/30/23 12:47 Pulse 97 08/30/23 13:40 Resp 20 08/30/23 12:47 BP 164/95 08/30/23 13:40 Pulse Ox 96 08/30/23 12:47 FiO2 Intake & Output 08/29/23 08/30/23 08/30/23 18:59 06:59 18:59 Intake Total 1760 Balance 1760 Intake: Intake, IV Titration 1760 Amount Doxycycline 100 mg In 100 Sodium Chloride 0.9% 100 ml @ 100 mls/hr IVPB Q12HR [facility] Rx#:[id number] Piperacillin-Tazobactam 3 100 .375 gm In Sodium Chloride 0.9% 100 ml @ 25 mls/hr IVPB Q8HR [facility] Rx# :[id number] Sodium Chloride 0.9% 1, 1560 000 ml @ 130 mls/hr IV . Q7H42M [facility] Rx#:[id number] Other: # Voids 3 - Exam GENERAL DESCRIPTION: An elderly male lying in bed in no distress RESPIRATORY SYSTEM: Unlabored breathing , decreased breath sounds at bases HEART: S1 S2 regular rate and rhythm , ABDOMEN: Soft , no tenderness EXTREMITIES: No edema feet - Labs CBC & Chem 7: 08/30/23 05:48 08/30/23 05:48 Labs: Abnormal Lab Results - Last 24 Hours (Table) 08/30/23 08/30/23 Range/Units 05:48 05:48 WBC 10.29 H (4.50-10.00) X 10*3/uL RBC 3.69 L (4.40-5.60) X 10*6/uL MCV 110.6 H (80.0-97.0) FL MCH 36.6 H (27.0-32.0) pg MPV 8.5 L (9.5-12.2) FL Immature Gran # 0.07 H (0.00-0.04) X 10*3/uL Monocytes # 1.78 H (0.20-1.00) X 10*3/uL Anion Gap 12.30 H (4.00-12.00) mmol/L BUN 6.1 L (9.0-27.0) mg/dL BUN/Creatinine Ratio 10.17 L (12.00-20.00) Ratio Microbiology - Last 24 Hours (Table) 08/26/23 17:30 Blood Culture - Preliminary Blood 08/26/23 17:45 Blood Culture - Preliminary Blood Assessment and Plan (1) Pneumonia Current Visit: Yes Status: Acute Priority: High Code(s): J18.9 - PNEUMONIA, UNSPECIFIED ORGANISM SNOMED Code(s): 841240895 (2) Leukocytosis Current Visit: Yes Status: Acute Code(s): D72.829 - ELEVATED WHITE BLOOD CELL COUNT, UNSPECIFIED SNOMED Code(s): 532118717 Plan: 1patient to the hospital with sepsis in this patient who did have a fever tachycardia elevated white count source likely pneumonia question of gram- negative versus postobstructive in this patient who did have a history of poorly differentiated adenocarcinoma on chemotherapy 2-sputum culture-cannot be obtained blood culture has been negative 3-patient did have improvement in his symptomatology and has been insisting on going home we will recommend a 7-day course of oral Avelox on Discharge discussed with admitting team Dictation was produced using [employer] dictation software. please excuse any grammatical, word or spelling errors. Time with Patient: Less than 30
== END 2023-08-30 16:13 | disposition home or self-care (01) | DRG 871 ==
LOC: EC 15:36 → 4SSUR 19:05 → 5NMEDONC 08-27 09:21 → OBSVTOIN 08-28 08:58
PROVIDERS: ADMIT Internal Medicine; ATTEND Internal Medicine
DX: A41.9 Sepsis, unspecified organism (principal); J18.9 Pneumonia, unspecified organism; C34.12 Malignant neoplasm of upper lobe, left bronchus or lung; C77.1 Secondary and unspecified malignant neoplasm of intrathoracic lymph nodes; E87.1 Hypo-osmolality and hyponatremia; J44.0 Chronic obstructive pulmonary disease with (acute) lower respiratory infection; Z87.891 Personal history of nicotine dependence; I10 Essential (primary) hypertension; H40.9 Unspecified glaucoma; I71.21 Aneurysm of the ascending aorta, without rupture; Z79.899 Other long term (current) drug therapy; Z82.49 Family history of ischemic heart disease and other diseases of the circulatory system; Z82.5 Family history of asthma and other chronic lower respiratory diseases; Z11.52 Encounter for screening for COVID-19; Z79.52 Long term (current) use of systemic steroids; Z79.82 Long term (current) use of aspirin; J38.00 Paralysis of vocal cords and larynx, unspecified
CPT/HCPCS: 36415; 71045; 71046; 71275; 80048; 80053; 83605; 83735; 84145; 84484; 85025; 85027; 85379; 85610; 85730; 86140; 87040; 87449; 87636; 93005; 96361; 96365; 96366; 96367; 96368; 96372; 96375; 99285

== ENCOUNTER → 2023-10-21 | Outpatient (CLI) | payer BC ==
[2023-10-21 11:21] LABS: African American GFR (CKD) >90 (>60 ml/min/1.73 sqM); Blood Urea Nitrogen 10 mg/dL (9-20); Non-African American GFR(CKD) >90 (>60 ml/min/1.73 sqM)
--- NOTE | 2023-10-22 18:01 | CT ---
EXAMINATION TYPE: CT ChestAbdPelvis w con DATE OF EXAM: 10/21/2023 COMPARISON: CTA chest dated 08/26/[address] chest and abdomen dated 08/14/2023. HISTORY: Follow up for lung cancer. CT DLP: 1212 mGycm Automated exposure control for dose reduction was used. CONTRAST: CT scan of the chest, abdomen and pelvis is performed without Oral Contrast and with IV Contrast, pat ient injected with 100ml mL of Isovue 300. Findings: CT chest: There is increasing consolidative density in the left upper lobe could be secondary postobstructive p neumonitis with increasing neoplasm versus radiation treatment There is no right lung abnormality. There is no pleural effusion or pneumothorax. There is stable 4.1 cm aneurysmal dilatation of the ascending thoracic aorta. There is no pulmonary e mbolism. There is no mediastinal, hilar or axillary adenopathy. There are no focal osseous lesions within the bony thorax CT abdomen and pelvis: Gallbladder is normal without distention, pericholecystic fluid, wall thickening or gallstone. There is no biliary ductal dilatation. There is no focal mass or organomegaly involving the liver, pancreas, spleen or adrenal glands.. There is no solid renal mass or hydronephrosis. There is no retroperitoneal adenopathy or hemorrhage in the caliber of the abdominal aorta is normal. The bowel loops are normal in caliber and there is no dilatation or obstruction. No inflammatory short ges identified in the bowel wall and mesentery. There is no free intracranial air or fluid. There is no pelvic mass or adenopathy. There is no free fluid within the pelvis. No focal osseous lesions are seen. Soft tissue the abdomen and pelvis are normal. IMPRESSION: 1. Increasing consolidative opacity in the left lung apex suspicious for increasing neoplasm with pos tobstructive pneumonitis versus radiation changes or pneumonia. 2. No evidence of metastatic disease within the abdomen or pelvis.
== END | disposition home or self-care (01) ==
LOC: RADCTMAIN 10:19
PROVIDERS: ATTEND Internal Medicine
DX: C34.12 Malignant neoplasm of upper lobe, left bronchus or lung (principal)
CPT/HCPCS: 82565; 84520; 71260; 74177; 36415; Q9967

== ENCOUNTER → 2024-06-08 | Outpatient (CLI) | payer MEDICARE ==
[2024-06-08 15:37] LABS: African American GFR (CKD) >90 (>60 ml/min/1.73 sqM); Blood Urea Nitrogen 7 mg/dL (9-20); Non-African American GFR(CKD) >90 (>60 ml/min/1.73 sqM)
--- NOTE | 2024-06-09 23:00 | CT ---
EXAMINATION TYPE: CT ChestAbdPelvis w con DATE OF EXAM: 06/08/2024 COMPARISON: Prior whole body CT October 21, 2023 and older studies HISTORY: Follow up for lung cancer, pt also states he fell recently and has been having pain in back in the thoracic region CT DLP: 661.2 mGycm. Automated Exposure Control for Dose Reduction was Utilized. CONTRAST: CT scan of the thorax, abdomen and pelvis is performed with oral and with IV Contrast, patient inject ed with 100cc mL of Isovue 300. FINDINGS: LUNGS: There is new fairly moderate-sized right-sided pleural effusion with associated compressive at electasis in the right lung base. Improved consolidation with air bronchograms seen anterior aspect of the left upper lobe. This area m easures approximately 4.9 x 2.4 cm axial series 5 image 10 versus prior study measuring 6.6 x 6.2 cm axial image 15. Adjacent thin-walled cystic change medially in the left upper lung is redemonstrated. No new masses. Mild underlying emphysematous change is redemonstrated. MEDIASTINUM: Stable 4.1 cm ascending aortic aneurysm. Coronary artery calcification is redemonstrated . No cardiomegaly or pericardial effusion is seen. LIVER/GB: Remains heterogeneously hypodense suggesting diffuse fatty infiltrative hepatocellular dise ase. PANCREAS: No significant abnormality is seen. SPLEEN: No significant abnormality is seen. ADRENALS: No significant abnormality is seen. KIDNEYS: Mildly distended bladder. BOWEL: Oral contrast reaches the level of the left colon. No abnormal small or large bowel dilatation is seen. GENITAL ORGANS: Slightly enlarged prostate gland consistent with BPH. LYMPH NODES: No new greater than 1 cm adenopathy. OSSEOUS STRUCTURES: Acute displaced fractures involving the lateral right seventh through 10th ribs s een on series 13 sagittal images 105 through 101. OTHER: No significant additional abnormality is seen. IMPRESSION: 1. Improved anterior medial left upper lung consolidation. No new mass or adenopathy. 2. New acute displaced fractures involving the right lateral seventh through 10th ribs with associate d moderate-sized right-sided pneumothorax. [facility], , 06/09/2024 10:58 PM
== END | disposition home or self-care (01) ==
LOC: RADCTMAIN 14:55
PROVIDERS: ATTEND Internal Medicine
DX: Z03.89 Encounter for observation for other suspected diseases and conditions ruled out (principal); C34.12 Malignant neoplasm of upper lobe, left bronchus or lung; S22.41XA Multiple fractures of ribs, right side, initial encounter for closed fracture; X58.XXXA Exposure to other specified factors, initial encounter
CPT/HCPCS: 82565; 84520; 71260; 74177; 36415; Q9967

== ENCOUNTER 2024-06-16 12:37 | Outpatient (CLI) | payer MEDICARE ==
[2024-06-15 11:17] VITALS: BMI 23.2
[2024-06-16 13:55] VITALS: TEMP 98.4
--- NOTE | 2024-06-16 14:18 | P.PCN ---
Date of Procedure: 06/16/24 Preoperative Diagnosis: Pleural effusion, right Postoperative Diagnosis: Bloody post traumatic right-sided pleural effusion Procedure(s) Performed: Thoracentesis, right Anesthesia: local Surgeon: Goran Lloyd Estimated Blood Loss (ml): 0 Pathology: other Condition: stable Disposition: same day Operative Findings: A time out was performed and the chest x-ray was reviewed, the appropriate side was confirmed and marked. My hands were washed immediately prior to the procedure. I wore a surgical cap, mask with protective eyewear, sterile gown and sterile gloves throughout the procedure. The patient was prepped and draped in a sterile manner using chlorhexidine scrub after the appropriate level was percussed and confirmed by ultrasound. 1% lidocaine was used to anesthesize the skin, subcutaneous tissue, superior aspect of the rib periosteum and parietal pleura. A finder needle was then introduced over the superior aspect of the rib to locate the pleural fluid; 2colored fluid was aspirated at a depth of approximately 2 cm. A 10-blade scalpel was used to eleanor the skin at the insertion site. The Ponm-y-Qididfrx needle was then introduced through the skin incision into the pleural space using negative aspiration pressure and the red colometric indicator to confirm appropriate positioning of the needle. The thoracentesis catheter was then threaded without difficulty. 1600 ml of bloody fluid was removed without difficulty. The catheter was then removed. No immediat e complications were noted during the procedure. A post-procedure chest x-ray is pending at the time of this note. The fluid will be sent for studies. Estimated blood loss is 0cc
--- NOTE | 2024-06-16 14:22 | US ---
EXAMINATION TYPE: US chest DATE OF EXAM: 06/16/2024 COMPARISON: XRAY(06/14/2024) CLINICAL INDICATION: Male, 64 years old with history of J90 PLEURAL EFFUSION; TECHNIQUE: Grayscale imaging of the chest. Targeted ultrasound of the posterior lower right hemithor ax FINDINGS: EXAM MEASUREMENTS: Right Pleural Effusion pocket size: 9.8 cm Right skin surface to fluid distance: 2.0 cm Right side marked for possible thoracentesis outside the dept. Pulmonologists are able to review the images in the patient?s EMR. IMPRESSIONS: Right pleural effusion [facility], , 06/16/2024 2:19 PM
--- NOTE | 2024-06-16 14:45 | XR ---
EXAMINATION TYPE: XR chest 1V DATE OF EXAM: 06/16/2024 2:40 PM COMPARISON: 08/19/2023 CLINICAL INDICATION: Male, 64 years old with history of Postthoracentesis, TECHNIQUE: XR chest 1V view(s) obtained. FINDINGS: The heart size is normal. The pulmonary vasculature is normal. Right lower lobe infiltrate may be present. Correlate for subsegmental atelectasis or pneumonia IMPRESSION: 1. Right lower lobe infiltrate. Correlate for atelectasis or pneumonia [facility], , 06/16/2024 2:43 PM
[2024-06-16 15:03] VITALS: BP 164/94; PULSE 99; RESP 18
== END 2024-06-16 15:15 | disposition home or self-care (01) ==
LOC: RADUSWWP 12:37
PROVIDERS: ATTEND Internal Medicine Critical Care Medicine
DX: J90 Pleural effusion, not elsewhere classified (principal); R91.8 Other nonspecific abnormal finding of lung field
CPT/HCPCS: 71045; 76604

== ENCOUNTER → 2024-10-06 | Outpatient (CLI) | payer MEDICARE ==
[2024-10-06 15:54] LABS: African American GFR (CKD) >90 (>60 ml/min/1.73 sqM); Blood Urea Nitrogen 13 mg/dL (9-20); Non-African American GFR(CKD) >90 (>60 ml/min/1.73 sqM)
--- NOTE | 2024-10-07 22:21 | CT ---
EXAMINATION TYPE: CT ChestAbdPelvis w con DATE OF EXAM: 10/06/2024 5:27 PM COMPARISON: None. CLINICAL INDICATION: Male, 64 years old with history of C34.12 MALIGNANT NEOPLASM OF UPPER LOBE, LEFT BRON, follow up lung cancer TECHNIQUE: CT ChestAbdPelvis w con , with sagittal coronal reformats. If MIP/3-D images were created, there are created on a separate workstation. Contrast used:100 mL of Isovue 300 with IV Contrast, (none if empty) Oral contrast used: with Oral Contrast (none if empty) CT DLP: 1238 mGycm, Automated exposure control for dose reduction was used. FINDINGS: CT CHEST: Portion of the thyroid visualized is normal. There is some streak opacity along the left apex suspicious for underlying mass. Blebs are present al cece the medial left apex. This measures approximately 4.9 x 2.4 cm. Previous measurement 5.4 x 2.6 cm . No enlarged mediastinal or hilar adenopathy is evident. No significant coronary artery calcification s. The ascending aorta diameter at the level of the main pulmonary artery is 4.5 cm. The main pulmonary artery diameter at the bifurcation is 2.9 cm. Mild coronary artery calcification is present. CT ABDOMEN: Liver: Normal Spleen: Normal Pancreas: Normal Adrenal glands: The adrenal glands are normal. Gallbladder: Normal Kidneys: No masses are evident. No hydronephrosis is present. No cysts are present. Delayed images were obtained through the kidneys, which remain unremarkable. Aorta: Vascular calcification is within the aorta. Inferior vena cava: Normal. CT PELVIS: Loops of bowel within the abdomen and pelvis are normal. There are loops of bowel which are incom pletely distended or lack oral contrast limiting their evaluation. Appendix: Normal as visualized. Urinary bladder: Normal. Genitourinary structures: Prostate is prominent Osseous structures: No suspicious lytic or sclerotic lesions. IMPRESSION: 1. Mildly diminished size of the left apical consolidation can be compatible with the patient's lung neoplasm. [facility], , 10/07/2024 10:19 PM
== END | disposition home or self-care (01) ==
LOC: RADCTMAIN 14:59
PROVIDERS: ATTEND Internal Medicine
DX: C34.12 Malignant neoplasm of upper lobe, left bronchus or lung (principal)
CPT/HCPCS: 82565; 84520; 71260; 74177; 36415; Q9967